=== PATIENT | female | born 1995 | race Caucasian/White ===

== ENCOUNTER 2019-11-01 22:13 | Emergency (ER) | payer MEDICAID, SELFPAY | END 2019-11-02 02:08 | disposition admitted as inpatient to this hospital (09) | LOC: ER 12-12 09:49 | PROVIDERS: Emergency Provider Emergency Medicine | DX: R45.850 Homicidal ideations (principal); F17.210 Nicotine dependence, cigarettes, uncomplicated | CPT/HCPCS: 80053; 80307; 84703; 85025; 99284; 99285 ==

== ENCOUNTER 2019-11-01 22:13 | Inpatient (IN) | payer MEDICAID, SELFPAY ==
[2019-11-01 22:16] VITALS: BP 140/80; PULSE 103; RESP 16; TEMP 36.9; O2SAT 94; BMI 37.1
--- NOTE | 2019-11-01 22:22 | PC.NURSE ---
pOLICE STATES PT LOCKED HER SELF IN THE CELLAR, AND HAD BEEN CHASING FAMILY AROUND WSCREAMING THAT SHE WANTED THEM TO . POLICE ALSO REPORTS THAT PT STATED HER FACE DID NOT FEEL LIKE HER FACE
--- NOTE | 2019-11-01 22:29 | ED_ITS ---
Entered by Aleida Briggs, acting as scribe for Ham Bess DO Documented by User: EARLINE Sauceda 11/02/19 01:10 HPI - Psych General: Chief Complaint: Psychiatric Symptoms Stated Complaint: 96 HR HOLD Time Seen by Provider: 11/01/19 22:31 Source: patient and police Mode of arrival: ambulatory Limitations: no limitations History of Present Illness: HPI Narrative: Patient is a 24-year-old female who presents to ED today after being brought by police with an affidavit for complaints of homicidal threats; according to the affidavit she made several statements that she wanted several of her family members to ; patient reports she is not suicidal; she denies hallucinations; she does states she wants her mother to and does not care if she does so; she does not have a plan to kill any of her family members History of same: Yes Associated symptoms: Reports no associated symptoms Treatments prior to arrival: placed on mental health hold [facility] ED PFSH: Statuses (acute, chronic, etc) shown below reflect problem list status as previously entered and may not be historically accurate Social History Smoking and tobacco status: current every day smoker MDM - Psych MDM Narrative: Medical decision making narrative: Dr. Bess placing admit orders Lab Data: Labs: Lab Results 11/01/19 11/01/19 11/01/19 Range/Units 21:00 23:00 23:00 WBC 14.7 H (4.0-10.0) 10^3/ uL RBC 4.14 (4.1-5.3) 10^6/u L Hgb 11.7 (11.5-15.3) g/dL Hct 37.0 (37.0-47.0) % MCV 89.4 (81-99) fL MCH 28.3 (28.0-34.0) pg MCHC 31.6 (30.0-36.0) g/dL RDW 12.0 L (12.1-15.1) % Plt Count 254 (130-400) 10^3/c mm MPV 9.3 (7.4-10.4) fL Neut % (Auto) 68.5 % Lymph % (Auto) 19.9 % [place] % (Auto) 7.7 % Eos % (Auto) 2.8 % Baso % (Auto) 0.5 % Neut # (Auto) 10.1 H (1.8-7.7) 10^3/u L Lymph # (Auto) 2.9 (0.8-4.8) 10^3/u L [place] # (Auto) 1.1 H (0.2-0.9) 10^3/u L Eos # (Auto) 0.4 (0.0-0.8) 10^3/u L Baso # (Auto) 0.1 (0.0-0.1) 10^3/u L Nucleated RBC % (a uto) 0 % Nucleated RBCs # 0.0 /100WBC Sodium 139 (136-145) mmol/L Potassium 3.6 (3.5-5.1) mmol/L Chloride 102 (98-107) mmol/L Carbon Dioxide 25 (22-29) mmol/L Anion Gap 15.6 (5-19) BUN 12 (6-20) mg/dL Creatinine 0.8 (0.5-0.9) mg/dL GFR Calculation 86.7 L (90-130) mL/min Glucose 92 (74-109) mg/dL Calcium 9.5 (8.6-10.0) mg/Dl Total Bilirubin 0.3 (0.15-1.2) mg/dL AST 17 (0-32) U/L ALT 22 (0-33) U/L Alkaline Phosphata se 117 H (35-105) IU/L Total Protein 7.0 (6.6-8.7) g/dL Albumin 4.1 (3.5-5.2) g/dL Globulin 2.9 (1.3-4.6) g/dL HCG, Qual Negative (Negative) Salicylates 0.5 L (3-10) mg/dL Acetaminophen < 5.0 L (10-30) ug/mL Ethyl Alcohol < 10 (0-10) mg/dL Discharge Plan Discharge Patient Disposition: Home, Self-Care Clinical Impression: Homicidal ideation Condition: Stable Discharge Date/Time: 11/02/19 02:08 Coding Level of Care Code ED Foundry Supervisor for Chg Fwd Documented by User: Ham Bess DO 11/02/19 05:16 HPI - Psych General: Chief Complaint: Psychiatric Symptoms Stated Complaint: 96 HR HOLD Time Seen by Provider: 11/01/19 22:31 Source: police Mode of arrival: ambulatory Limitations: no limitations History of Present Illness: HPI Narrative: 24 yo f came to the er with police for Psychiatric symptoms. Onset was Associated symptoms: Deny auditory hallucinations or visual hallucinations Review of Systems Const: Denies: fever or chills Eyes: Denies: change in vision or blurry vision ENMT: Denies: painful swallowing, swelling of lips/tongue, bleeding gums, dental pain, Change in hearing, nose bleeds, post nasal drip or facial/sinus pain Card: Denies: chest pain, palpitations, irregular heart rhythm, edema, swelling of feet/ankles, shortness of breath on exertion or shortness of breath when lying down Resp: Denies: shortness of breath, productive cough, non-productive cough or wheezing GI: Denies: abdominal pain, nausea, vomiting, rectal pain, blood in stool or black tarry stool : Denies: painful urination, urinary frequency, urinary urgency or blood in urine Musc: Denies: neck pain, back pain, redness or joint warmth Skin/Breast: Denies: rash, itching or redness Neuro: Denies: headache, dizziness, vertigo, confusion or seizure-like activity Psych: Denies: visual hallucinations or auditory hallucinations PFSH ED PFSH: Statuses (acute, chronic, etc) shown below reflect problem list status as previously entered and may not be historically accurate Social History Smoking and tobacco status: current every day smoker Female Reproductive History: Date of last menstrual period: 11/01/19 Physical Exam Const: COMMON NORMALS: alert GENERAL APPEARANCE: well developed ORIENTATION/CONSCIOUSNESS: Yes awake, Yes oriented to person, Yes oriented to place and Yes oriented to time HENMT: COMMON NORMALS: normocephalic, external ears normal, external nose normal and moist oral mucous membranes HEAD & SCALP: normocephalic; no scalp tenderness FACE & SINUS: normal facial exam NOSE: external nose normal and no nasal discharge EXTERNAL EAR: Yes external ears normal MOUTH: tongue normal TEETH & GINGIVA: no abnormal tooth and associated gingiva THROAT: posterior oropharynx normal; no peritonsillar mass Eye: COMMON NORMALS: PERRL, EOMs intact bilaterally and conjunctivae normal EYELID: eyelids normal CONJUNCTIVA: Yes conjunctivae normal PUPIL: Yes PERRL Neck/C-Spine: COMMON NORMALS: full ROM GENERAL: Yes anterior neck swelling and No tracheal deviation CERVICAL SPINE: Yes normal cervical lordosis, No cervical spine tenderness, No step off deformity, No paracervical muscle tenderness and No paracervical muscle spasm Chest: COMMONS NORMALS: inspection of chest normal CHEST: Yes symmetrical chest wall rise and No tenderness Resp: COMMON NORMALS: clear to auscultation bilaterally EFFORT & INSPECTION: No tachypneic, No respiratory distress, No retractions, No uses accessory muscles and No tracheal deviation AUSCULTATION: clear to auscultation bilaterally, no rhonchi, no wheezes and lung sounds not diminished Cardio: COMMON NORMALS: regular rate and regular rhythm RATE: regular rate RHYTHM: regular rhythm HEART SOUNDS: no murmurs PERIPHERAL PULSES: radial pulses present GI: INSPECTION: No abdominal distension AUSCULTATION: No hyperactive bowel sounds and No hypoactive bowel sounds PALPATION: No tender, No guarding and No rigid PERCUSSION: no dullness to percussion and no tympanic to percussion : COMMON NORMALS: Yes no CVA tenderness BLADDER/KIDNEY EXAM: Yes no CVA tenderness Back/Pelvis: COMMON NORMALS: no CVA tenderness PELVIS: Yes no pain with anterior-posterior compression and Yes no pain with lateral compression Neuro: SENSORIUM/ORIENTATION: Yes alert, Yes oriented to person, Yes oriented to place and Yes oriented to time Psych: COMMON NORMALS: mental status grossly normal and speech normal SPEECH: Yes normal speech Skin: COMMON NORMALS: no rashes or lesions noted GENERAL SKIN EXAM: no rashes or lesions noted MDM - Psych Lab Data: Labs: Lab Results 11/01/19 11/01/19 11/01/19 Range/Units 21:00 23:00 23:00 WBC 14.7 H (4.0-10.0) 10^3/ uL RBC 4.14 (4.1-5.3) 10^6/u L Hgb 11.7 (11.5-15.3) g/dL Hct 37.0 (37.0-47.0) % MCV 89.4 (81-99) fL MCH 28.3 (28.0-34.0) pg MCHC 31.6 (30.0-36.0) g/dL RDW 12.0 L (12.1-15.1) % Plt Count 254 (130-400) 10^3/c mm MPV 9.3 (7.4-10.4) fL Neut % (Auto) 68.5 % Lymph % (Auto) 19.9 % [place] % (Auto) 7.7 % Eos % (Auto) 2.8 % Baso % (Auto) 0.5 % Neut # (Auto) 10.1 H (1.8-7.7) 10^3/u L Lymph # (Auto) 2.9 (0.8-4.8) 10^3/u L [place] # (Auto) 1.1 H (0.2-0.9) 10^3/u L Eos # (Auto) 0.4 (0.0-0.8) 10^3/u L Baso # (Auto) 0.1 (0.0-0.1) 10^3/u L Nucleated RBC % (a uto) 0 % Nucleated RBCs # 0.0 /100WBC Sodium 139 (136-145) mmol/L Potassium 3.6 (3.5-5.1) mmol/L Chloride 102 (98-107) mmol/L Carbon Dioxide 25 (22-29) mmol/L Anion Gap 15.6 (5-19) BUN 12 (6-20) mg/dL Creatinine 0.8 (0.5-0.9) mg/dL GFR Calculation 86.7 L (90-130) mL/min Glucose 92 (74-109) mg/dL Calcium 9.5 (8.6-10.0) mg/Dl Total Bilirubin 0.3 (0.15-1.2) mg/dL AST 17 (0-32) U/L ALT 22 (0-33) U/L Alkaline Phosphata se 117 H (35-105) IU/L Total Protein 7.0 (6.6-8.7) g/dL Albumin 4.1 (3.5-5.2) g/dL Globulin 2.9 (1.3-4.6) g/dL HCG, Qual Negative (Negative) Salicylates 0.5 L (3-10) mg/dL Acetaminophen < 5.0 L (10-30) ug/mL Ethyl Alcohol < 10 (0-10) mg/dL Discharge Plan Discharge Patient Disposition: Home, Self-Care Clinical Impression: Homicidal ideation Condition: Stable Discharge Date/Time: 11/02/19 02:08 Coding Level of Care Code ED Foundry Supervisor for Chg Fwd The documentation recorded by the Chester garza Stephanie Lyn, accurately reflects the service I personally performed and the decisions made by , Ham Bess, Nov 01, 2019 22:13
[2019-11-01 23:12] LABS: Basophils # 0.1 10^3/uL (0.0-0.1); Basophils % 0.5 %; Eosinophils # 0.4 10^3/uL (0.0-0.8); Eosinophils % 2.8 %; Hemoglobin 11.7 g/dL (11.5-15.3); Lymphocytes # 2.9 10^3/uL (0.8-4.8); Lymphocytes % 19.9 %; Mean Corpuscular HGB Conc 31.6 g/dL (30.0-36.0); Mean Corpuscular Hemoglobin 28.3 pg (28.0-34.0); Mean Corpuscular Volume 89.4 fL (81-99); Mean Platelet Volume 9.3 fL (7.4-10.4); Monocytes # 1.1 10^3/uL (0.2-0.9); Monocytes % 7.7 %; Neutrophils # 10.1 10^3/uL (1.8-7.7); Neutrophils % 68.5 %; Nucleated Red Blood Cells % 0 %; Platelet Count 254 10^3/cmm (130-400); Red Blood Count 4.14 10^6/uL (4.1-5.3); White Blood Count 14.7 10^3/uL (4.0-10.0)
[2019-11-01 23:29] LABS: Alanine Aminotransferase 22 U/L (0-33); Albumin Level 4.1 g/dL (3.5-5.2); Alkaline Phosphatase 117 IU/L (35-105); Anion Gap 15.6 (5-19); Aspartate Amino Transferase 17 U/L (0-32); Blood Urea Nitrogen 12 mg/dL (6-20); Calcium 9.5 mg/Dl (8.6-10.0); Carbon Dioxide 25 mmol/L (22-29); Chloride 102 mmol/L (98-107); Globulin 2.9 g/dL (1.3-4.6); Glomerular Filtration Rate 86.7 mL/min (90-130); Glucose 92 mg/dL (74-109); Potassium 3.6 mmol/L (3.5-5.1); Salicylate 0.5 mg/dL (3-10); Sodium 139 mmol/L (136-145); Total Bilirubin 0.3 mg/dL (0.15-1.2)
[2019-11-01 23:32] LABS: Acetaminophen < 5.0 ug/mL (10-30); Alcohol Level < 10 mg/dL (0-10)
[2019-11-02 00:53] LABS: HCG, Serum Qual Negative (Negative)
[2019-11-02 02:08] VITALS: BP 99/51; PULSE 94; RESP 16; O2SAT 96
[2019-11-02 02:16] VITALS: BP 121/61; PULSE 100; RESP 21; TEMP 36.9; O2SAT 97
[2019-11-02 06:00] VITALS: BP 101/62; PULSE 84; RESP 20; TEMP 36.8; O2SAT 97
[2019-11-02 13:48] VITALS: BP 128/87; PULSE 99; RESP 20; TEMP 36.8; O2SAT 98
--- NOTE | 2019-11-02 16:34 | P.HP_ITS ---
Providers/Chief Complaint Admitting Physician: Ashish Hickman MD Chief Complaint: 96 HR HOLD HPI NPU History of Present Illness Carla Young is a 24 year old female who presented to the unit via the ED reporting that she had gotten a conflict with her mother and to the outcome of that conflict was that she got kicked out and she had nowhere else to go and her mother reported that she (the patient) was feeling suicidal. She reports that she never felt that way and it was just a product of this conflict. She spent the rest of the session in date and trying to get this flex o writer operator to get on a phone with anyone who might agreed to let her come there so she can be discharged today. She was classically Carla and that she was having tantrums jumping up and down having screaming fits when she did not get her way but otherwise she was calm. We reviewed her last evaluation with this flex o writer operator and determined that outside of being kicked out by her mom there have been no changes in her psychosocial circumstances. We discussed the plan to work with the treatment team on possible options for after discharge and to take a look at her medication regimen with a plan to make changes as indicated. However sig nificant concerns exist for this being behavioral and a indication that home is becoming a less viable option for Carla.who presented to the unit via the ED reporting that she had gotten a conflict with her mother and to the outcome of that conflict was that she got kicked out and she had nowhere else to go and her mother reported that she (the patient) was feeling suicidal. She reports that she never felt that way and it was just a product of this conflict. She spent the rest of the session in date and trying to get this flex o writer operator to get on a phone with anyone who might agreed to let her come there so she can be discharged today. She was classically Carla and that she was having tantrums jumping up and down having screaming fits when she did not get her way but otherwise she was calm. We reviewed her last evaluation with this flex o writer operator and determined that outside of being kicked out by her mom there have been no changes in her psychosocial circumstances. We discussed the plan to work with the treatment team on possible options for after discharge and to take a look at her medication regimen with a plan to make changes as indicated. However significant concerns exist for this being behavioral and a indication that home is becoming a less viable option for Carla. Per last eval with this flex o writer operator: History of Present Illness Date of Service: Sep 13, 2019 Chief Complaint: I don't know why I'm here. Can I go home? HPI: Carla presented to the inpatient unit reporting that she did not understand why she has been hospitalized or why she is on a 96-hour hold. She appear to be a poor historian as she can give no ideas of why concerns were raised. She went to the [facility] where she is known and she reports that the problem had something to do with her not wanting to see a therapist. She denies any changes or issues. She endorses compliance with her medication and that she is doing well and has been doing well. History of her recent hospitalizations which are frequent have been included in this document. She denies any change in her history since her last hospitalizations. She denies any problems or any need for any medication interventions and was mostly focused on when would she be discharged. Per ED eval: HISTORY OF PRESENT ILLNESS Chief Complaint: BEHAVIOR CHANGE. This started today. (23 yo female presents to ED on a 96 hour hold. The patient states she was woke to be brought to the ED and she doesn't know why. She said her grandma was mad because the patient walked out of her [facility] appointment and so she had the patient placed on a 96 hour hold since the patient won't go to her appointments nor will she take her medications. When the patient was asked about having hallucinations, depression, SI or HI, the patient kept saying no and would not look at the physician but would only look to the side and repeatedly answer no . The patient said she last used methamphetamine today. After asking her many questions regarding her mental state, she said everything is no and everything is yes. ). The patient is non-compliant with medication. Recent methamphetamines use. Last used drugs today. Has not been sleeping. Has exhibited unusual behavior. Has been paranoid (per family members in the affidavit). She has had hallucinations (per family members though she denies it). The symptoms are described as severe. No injury is present. Similar symptoms previously. Recent medical care: The patient was seen recently by a health care provider. REVIEW OF SYSTEMS All other systems reviewed and are negative. PAST HISTORY See nurses notes. Lung disease. Prior suicide attempt. ( PCP - none). Myocardial infarction. Asthma. Anxiety. Bipolar disorder. Depression. Schizophrenia and psychosis (Intermittent Explosive Disorder, Personality Disorder, Adjustment DIsorder). Previous suicide attempts. Alcoholism. Alcoholism. Substance abuse. ( Lifestyle/Substance Problems). Surgeries: Appendectomy. SOCIAL HISTORY Current every day light tobacco smoker (cigarette)- less than 1/2 a pack per day. Occasional alcohol use; consumes beer and liquor. History of heavy drug use: methamphetamines. Recently used drugs today. ADDITIONAL NOTES The nursing notes have been reviewed. PHYSICAL EXAM Vital Signs: 09/12/2019 22:04 BP: 168/82. HR: 105. RR: 18. O2 saturation: 98%. Temp: 98.1 F. Appearance: Alert. No acute distress. Appearance is normal. Neck: Neck supple. CVS: Tachycardia. Respiratory: Breath sounds normal. Abdomen: Nontender. Skin: Normal skin color. Extremities: Extremities exhibit normal ROM. Psych / Neuro: Oriented X 3. Mood and affect normal. Speech normal. Cognition normal. Thought process and content normal. Insight and judgement not normal. She does not appear to understand hers illness or feel treatment is necessary. Per last eval: History of Present Illness Date of Service: Jun 04, 2019 Chief Complaint: Hat Finishing Materials Preparer stated that she wanted to harm herself. Carla is denying the allegation. HPI: Carla is a 23 year old white female who was referred for suicidal thoughts. She denies suicidal thoughts. The last time Carla had suicidal thoughts was six months ago. She denies a history of suicide attempts. Moods are happy and a little anxious. The patient is able to have fun. Sleep is good. Appetite is good. Energy level is low. Concentration is good. She denies crying spells and g uilty feelings. Motivation is good. She denies homicidal and suicidal thoughts. She denies excessive worry, panic attacks, compulsions and obsessions. The patient denies parisa and irritability. Carla denies hallucinations, paranoia, ideas of references, thought broadcasting, thought insertion and thought withdrawal. Meds NPU Allergies Allergy/AdvReac Type Severity Reaction Status Date / Time haloperidol [From Haldol] Allergy Intermediate ADR-Shakine Verified 11/02/19 03:17 ss PFSH NPU PFSH: Statuses (acute, chronic, etc) shown below reflect problem list status as previously entered and may not be historically accurate Social History Smoking and tobacco status: current every day smoker Mental Status Exam MSE Comments: This is an obese white female with adequate dress grooming and eye contact. No abnormal movements. Cooperative with exam and occasional mild distress. Speech was increased rate and volume. Mood described as fine affect congruent but occasionally labile. Thought process organized. Thought content: Patient denied any suicidal or homicidal ideations, there were no delusions reported or noted, she denied any auditory or visual hallucinations. Attention and concentration were intact and memory appeared reliable but none were formally tested. She is alert and oriented x3. Insight and judgment are limited. Vitals/I&O/Wt Last Vital Signs Temp 98.2 F 11/02/19 13:48 Pulse 99 11/02/19 13:48 Resp 20 H 11/02/19 13:48 BP 128/87 11/02/19 13:48 Pulse Ox 98 11/02/19 13:48 Weight last 48 hrs Weight 117.934 kg Weight 117.934 kg Weight 117.934 kg Weight 104.326 kg A&P Assessment and plan (1) Schizophrenia: This is a 24-year-old white female with a long history of psychiatric hospitalizations often brought about by psychosocial stressors and conflicts who presents again today after a conflict with her mother wherein she was kicked out and had nowhere to go and was noted by mother to be suicidal though she denies and she is here desiring discharge as soon as possible. 1. Continue current medications. 2. Consider medication changes as indicated 3. Encouraged individual, group and milieu therapy. 4. Continue every 15 minute checks for safety. 5. Work with social work to determine housing options Status: Acute Code(s): F20.9 - Schizophrenia, unspecified (2) Methamphetamine dependence, continuous: Status: Acute Code(s): F15.20 - Other stimulant dependence, uncomplicated Involuntary Hold Information 96 Hour Hold: 96 Hour Involuntary Admission: Yes 96 Hour Hold Ending Date: 11/07/19 96 Hour Hold Ending Time: 00:01 Attestations NPU Medical Necessity Statement*: Inpatient hospitalization is medically necessary and the clinically appropriate intervention at this time. She will be in the hospital for over 2 midnights. We will initiate medication and titrate and monitor for effect. Likely length of stay 2 to 4 days. Coding Level of Care Code Acute Waterworks Supervisor for g Fwd Diagnoses Schizophrenia F20.9 Methamphetamine dependence, continuous F15.20
[2019-11-02 20:40] VITALS: BP 101/63; PULSE 82; RESP 19; TEMP 36.9; O2SAT 96
[2019-11-03 05:58] VITALS: BP 111/84; PULSE 94; RESP 20; TEMP 36.8; O2SAT 95
[2019-11-03] MEDS: OLANZapine ODT 5 MG TABLET PO (10:18)
--- NOTE | 2019-11-03 10:18 | PC.NURSE ---
PRN ZYPREXA ZYDIS ZYPREXA ZYDIS 5MG PO GIVEN FOR AGITATION. PATIENT IN ROOM YELLING AND SCREAMING THAT SHE WANTS TO GO HOME. STAFF TRIED VERBAL DEESCALATION, PATIENT WILLINGLY TOOK MEDICATION TO HELP CALM HER DOWN. WILL CONTINUE TO MONITOR FOR MEDICATION EFFECTIVENESS.
--- NOTE | 2019-11-03 11:12 | P.PN_ITS ---
Subjective NPU Subjective: Interval history: Carla presented today reporting that she is struggling with not being able to go home. Staff tried to reason with her and help her manage her emotions which was unsuccessful. She ultimately got an injection. We discussed with her the fact that this behavior is what is getting her in trouble at home and she could not seem to really connect with that reality. We discussed the possibility of making some medication changes but we need to talk to her guardian. Mental Status Exam MSE Comments: This is an obese white female with adequate dress grooming and eye contact. No abnormal movements. semi-cooperative with exam in occasional mild to moderate distress. Speech was increased rate and volume. Mood described as ok, affect upset and labile. Thought process organized. Thought content: Patient denied any suicidal or homicidal ideations, there were no delusions reported or noted, she denied any auditory or visual hallucinations. Attention and concentration were limited and memory appeared unreliable but none were formally tested. She is alert and oriented x3. Insight and judgment are impaired Vitals/I&O/Wt Last Vital Signs Temp 98.3 F 11/04/19 06:00 Pulse 81 11/04/19 06:00 Resp 16 11/04/19 06:00 BP 106/64 11/04/19 06:00 Pulse Ox 95 11/04/19 06:00 A&P Additional A&P Information Additional A&P Information: This is a 24-year-old white female with a long history of psychiatric hospitalizations often brought about by psychosocial stressors and conflicts who presents again today after a conflict with her mother wherein she was kicked out and had nowhere to go and was noted by mother to be suicidal though she denies and she is here desiring discharge as soon as possible. 1. Continue current medications. 2. Consider medication changes as indicated after speaking to guardian 3. Encouraged individual, group and milieu therapy. 4. Continue every 15 minute checks for safety. 5. Work with social work to determine housing options Involuntary Hold Information 96 Hour Hold: 96 Hour Involuntary Admission: Yes 96 Hour Hold Ending Date: 11/07/19 96 Hour Hold Ending Time: 00:01 Attestations NPU Medical Necessity Statement*: Inpatient hospitalization is medically necessary and the clinically appropriate intervention at this time. We will initiate medication and titrate and monitor for effect. Likely length of stay 3-5 days. Coding Level of Care Code Acute Corporate Sales Manager for Walt Cuellar
--- NOTE | 2019-11-03 11:20 | PC.NURSE ---
VITALIY HUGHES FOLLOW UP MEDICATION SOMEWHAT EFFECTIVE. PATIENT IS STILL HAVING SOME ANGER OUTBURST.
[2019-11-03 13:27] VITALS: BP 108/74; PULSE 97; RESP 18; TEMP 36.5; O2SAT 98
[2019-11-03] MEDS: ziprasidone 20 mg/mL SDV IM (15:42)
--- NOTE | 2019-11-03 15:42 | PC.NURSE ---
PRN GEODON ONE TIME ORDER PRN GEODON 20MG IM PER DR. DELA CRUZ ORDER TO LEFT DORSOGLUTEAL FOR AGITATION/HALLUCINATIONS. PATIENT YELLING AND SCREAMING, PATIENT THOUGHT THAT THE SHIP'S PILOT WERE IN HER ROOM AND THAT THEY HAD A LIE DETECTOR ON HER. STAFF ESCORTED PATIENT BACK TO SECLUSION ROOM WHERE SOCIAL MEDIA DESIGNER SAT WITH HER TIL WE BROUGHT GEODON INJECTION. PATIENT TOOK INJECTION WILLINGLY AND LAID DOWN IN BED TO REST. WILL CONTINUE TO MONITOR FOR MEDICATION EFFECTIVENESS.
--- NOTE | 2019-11-03 16:50 | PC.NURSE ---
PRN LILIA ONE TIME ORDER FOLLOW UP MEDICATION EFFECTIVE. PATIENT IN LYING IN BED RESTING. RESPIRATIONS EVEN AND UNLABORED.
--- NOTE | 2019-11-03 17:38 | PC.NURSE ---
PRN ZYPREXA ZYDIS ZYPREXA ZYDIS 5MG PO GIVEN FOR AGITATION. PATIENT IN ROOM YELLING AND SCREAMING THAT SHE WANTS TO GO HOME. WILL CONTINUE TO MONITOR FOR MEDICATION EFFECTIVENESS.
[2019-11-03 20:52] VITALS: BP 115/73; PULSE 83; RESP 18; O2SAT 94
--- NOTE | 2019-11-03 20:53 | PC.NURSE ---
PATIENT VITAL SIGNS PATIENT REFUSED TEMPERATURE BUT ALLOWED STAFF TO DO ALL VITAL SIGNS.
[2019-11-04 06:00] VITALS: BP 106/64; PULSE 81; RESP 16; TEMP 36.8; O2SAT 95
--- NOTE | 2019-11-04 07:19 | P.PN_ITS ---
Subjective NPU Subjective: Interval history: Carla presents today being a little less upset as there are some possibility developing of where she can go outside of the hospital. She is very resistant to discussing the impact that drugs, specifically methamphetamine have had on her life. She continues to request to be discharged directly to a friend's house but we continue to reiterate that she has a guardian in the wee are discussing the guardian's wishes in relation to her and what has been successful in her history. She is not requiring additional medication today and has seemingly come to foot piece assembler with the fact that she will be in the hospital until we find an appropriate alternative for her. She reports she is eating and sleeping well. Mental Status Exam MSE Comments: This is an obese white female with adequate dress grooming and eye contact. No abnormal movements. semi-cooperative with exam in no acute distress. Speech was increased rate and volume. Mood described as better, a ffect less labile. Thought process organized. Thought content: Patient denied any suicidal or homicidal ideations, there were no delusions reported or noted, she denied any auditory or visual hallucinations. Attention and concentration were limited and memory appeared unreliable but none were formally tested. She is alert and oriented x3. Insight and judgment are impaired. Vitals/I&O/Wt Last Vital Signs Temp 98.3 F 11/04/19 06:00 Pulse 81 11/04/19 06:00 Resp 16 11/04/19 06:00 BP 106/64 11/04/19 06:00 Pulse Ox 95 11/04/19 06:00 A&P Additional A&P Information Additional A&P Information: This is a 24-year-old white female with a long history of psychiatric hospitalizations often brought about by psychosocial stressors and conflicts who presents again today after a conflict with her mother wherein she was kicked out and had nowhere to go and was noted by mother to be suicidal though she denies and she is here desiring discharge as soon as possible. 1. Continue current medications. 2. Consider medication changes as indicated after speaking to guardian 3. Encouraged individual, group and milieu therapy. 4. Continue every 15 minute checks for safety. 5. Will work with guardian and social work to determine housing options. Involuntary Hold Information 96 Hour Hold: 96 Hour Involuntary Admission: Yes 96 Hour Hold Ending Date: 11/07/19 96 Hour Hold Ending Time: 00:01 Attestations NPU Medical Necessity Statement*: Inpatient hospitalization is medically necessary and the clinically appropriate intervention at this time. We will initiate medication and titrate and monitor for effect. Likely length of stay 3-5 days. Coding Level of Care Code Acute Steamfitter for Walt Cuellar
[2019-11-04 13:49] VITALS: BP 124/86; PULSE 106; RESP 20; TEMP 36.8; O2SAT 96
[2019-11-04] MEDS: nicotine 21 mg Patch 1 PATCH TRANSDERMA (13:57)
[2019-11-04 19:41] VITALS: BP 99/61; PULSE 93; RESP 20; TEMP 36.9; O2SAT 93
[2019-11-05 06:00] VITALS: BP 132/80; PULSE 95; RESP 19; TEMP 36.8; O2SAT 95
--- NOTE | 2019-11-05 10:55 | P.PN_ITS ---
Subjective NPU Subjective: Interval history: Carla presents today continuing to focus on leaving almost by any means necessary. She requested to go to her friend's house or just be let loose. Reassured her that she had been accepted by a rehab and we are just trying to work a little just 6. She continues however to be inpatient. We discussed the risks benefits and alternatives of starting Geodon but also restarting her Abilify injection when she understood and agreed to proceed as is documented in this note. Mental Status Exam MSE Comments: This is an obese white female with adequate dress grooming and eye contact. No abnormal movements. semi-cooperative with exam in no acute distress. Speech was increased rate and volume. Mood described as i'm fine I don't need to be here, affect less labile. Thought process organized. Thought content: Patient denied any suicidal or homicidal ideations, there were no delusions reported or noted, she denied any auditory or visual hallucinations. Attention and concentration were limited and memory appeared unreliable but none were formally tested. She is alert and oriented x3. Insight and judgment are impaired. Vitals/I&O/Wt Last Vital Signs Temp 98.2 F 11/05/19 06:00 Pulse 95 11/05/19 06:00 Resp 19 H 11/05/19 06:00 BP 132/80 11/05/19 06:00 Pulse Ox 95 11/05/19 06:00 A&P Additional A&P Information Additional A&P Information: This is a 24-year-old white female with a long history of psychiatric hospitalizations often brought about by psychosocial stressors and conflicts who presents again today after a conflict with her mother wherein she was kicked out and had nowhere to go and was noted by mother to be suicidal though she denies and she is here desiring discharge as soon as possible. 1. Continue current medications. Restart Abilify Maintena 400 mg IM and start geodon 20mg bid 2. Consider medication changes as indicated after speaking to guardian 3. Encouraged individual, group and milieu therapy. 4. Continue every 15 minute checks for safety. 5. Will discharge to rehab tomorrow Involuntary Hold Information 96 Hour Hold: 96 Hour Involuntary Admission: Yes 96 Hour Hold Ending Date: 11/07/19 96 Hour Hold Ending Time: 00:01 Attestations NPU Medical Necessity Statement*: Inpatient hospitalization is medically necessary and the clinically appropriate intervention at this time. We will initiate medication and titrate and monitor for effect. Discharge to rehab tomorrow Coding Level of Care Code Acute Doctor'S Assistant for Walt Cuellar
[2019-11-05] MEDS: hyDROXYzine 25 mg Capsule 50 MG PO (11:20)
--- NOTE | 2019-11-05 11:21 | PC.NURSE ---
PT NOTE: PT BEATING AND PUSHING ON DOOR, REPORTS SHE WANTS OUT OF HERE AND WANTS A CIGARETTE. OFFERED AND ENCOURAGED PATIENT TO TAKE NICOTINE PATCH BUT PT REFUSED. PRN VISTARIL 50 MG GIVEN FOR ANXIETY.
[2019-11-05] MEDS: nicotine 21 mg Patch 1 PATCH TRANSDERMA (13:08)
[2019-11-05 14:00] VITALS: BP 130/87; PULSE 120; RESP 18; TEMP 36.4; O2SAT 96
[2019-11-05] MEDS: ziprasidone hcl 20 mg Capsule PO (16:48)
[2019-11-05] MEDS: ARIPiprazole Maintena 400 MG IM (18:19)
--- NOTE | 2019-11-05 18:25 | PC.NURSE ---
PT NOTE: 1800 GEODON 20MG NOT GIVEN PER DR. DELA CRUZ.
[2019-11-05 19:53] VITALS: BP 107/62; PULSE 88; RESP 17; TEMP 36.9; O2SAT 97
[2019-11-06 06:00] VITALS: BP 127/82; PULSE 100; RESP 20; TEMP 37; O2SAT 99
--- NOTE | 2019-11-06 11:04 | PM.NDC ---
Diagnoses at Discharge Discharge Diagnosis (1) Schizophrenia: Status: Acute (2) Methamphetamine dependence, continuous: Status: Acute Reason for Visit Reason for Visit: Reason For Visit: 96 HR HOLD Brief History: HPI NPU History of Present Illness Carla Young is a 24 year old female who presented to the unit via the ED reporting that she had gotten a conflict with her mother and to the outcome of that conflict was that she got kicked out and she had nowhere else to go and her mother reported that she (the patient) was feeling suicidal. She reports that she never felt that way and it was just a product of this conflict. She spent the rest of the session in date and trying to get this advertising writer to get on a phone with anyone who might agreed to let her come there so she can be discharged today. She was classically Carla and that she was having tantrums jumping up and down having screaming fits when she did not get her way but otherwise she was calm. We reviewed her last evaluation with this advertising writer and determined that outside of being kicked out by her mom there have been no changes in her psychosocial circumstances. We discussed the plan to work with the treatment team on possible options for after discharge and to take a look at her medication regimen with a plan to make changes as indicated. However significant concerns exist for this being behavioral and a indication that home is becoming a less viable option for Carla.who presented to the unit via the ED reporting that she had gotten a conflict with her mother and to the outcome of that conflict was that she got kicked out and she had nowhere else to go and her mother reported that she (the patient) was feeling suicidal. She reports that she never felt that way and it was just a product of this conflict. She spent the rest of the session in date and trying to get this advertising writer to get on a phone with anyone who might agreed to let her come there so she can be discharged today. She was classically Carla and that she was having tantrums jumping up and down having screaming fits when she did not get her way but otherwise she was calm. We reviewed her last evaluation with this advertising writer and determined that outside of being kicked out by her mom there have been no changes in her psychosocial circumstances. We discussed the plan to work with the treatment team on possible options for after discharge and to take a look at her medication regimen with a plan to make changes as indicated. However significant concerns exist for this being behavioral and a indication that home is becoming a less viable option for Carla. Per last eval with this advertising writer: History of Present Illness Date of Service: Sep 13, 2019 Chief Complaint: I don't know why I'm here. Can I go home? HPI: Carla presented to the inpatient unit reporting that she did not understand why she has been hospitalized or why she is on a 96-hour hold. She appear to be a poor historian as she can give no ideas of why concerns were raised. She went to the [facility] where she is known and she reports that the problem had something to do with her not wanting to see a therapist. She denies any changes or issues. She endorses compliance with her medication and that she is doing well and has been doing well. History of her recent hospitalizations which are frequent have been included in this document. She denies any change in her history since her last hospitalizations. She denies any problems or any need for any medication interventions and was mostly focused on when would she be discharged. Per ED eval: HISTORY OF PRESENT ILLNESS Chief Complaint: BEHAVIOR CHANGE. This started today. (23 yo female presents to ED on a 96 hour hold. The patient states she was woke to be brought to the ED and she doesn't know why. She said her grandma was mad because the patient walked out of her [facility] appointment and so she had the patient placed on a 96 hour hold since the patient won't go to her appointments nor will she take her medications. When the patient was asked about having hallucinations, depression, SI or HI, the patient kept saying no and would not look at the physician but would only look to the side and repeatedly answer no . The patient said she last used methamphetamine today. After asking her many questions regarding her mental state, she said everything is no and everything is yes. ). The patient is non-compliant with medication. Recent methamphetamines use. Last used drugs today. Has not been sleeping. Has exhibited unusual behavior. Has been paranoid (per family members in the affidavit). She has had hallucinations (per family members though she denies it). The symptoms are described as severe. No injury is present. Similar symptoms previously. Recent medical care: The patient was seen recently by a health care provider. REVIEW OF SYSTEMS All other systems reviewed and are negative. PAST HISTORY See nurses notes. Lung disease. Prior suicide attempt. ( PCP - none). Myocardial infarction. Asthma. Anxiety. Bipolar disorder. Depression. Schizophrenia and psychosis (Intermittent Explosive Disorder, Personality Disorder, Adjustment DIsorder). Previous suicide attempts. Alcoholism. Alcoholism. Substance abuse. ( Lifestyle/Substance Problems). Surgeries: Appendectomy. SOCIAL HISTORY Current every day light tobacco smoker (cigarette)- less than 1/2 a pack per day. Occasional alcohol use; consumes beer and liquor. History of heavy drug use: methamphetamines. Recently used drugs today. ADDITIONAL NOTES The nursing notes have been reviewed. PHYSICAL EXAM Vital Signs: 09/12/2019 22:04 BP: 168/82. HR: 105. RR: 18. O2 saturation: 98%. Temp: 98.1 F. Appearance: Alert. No acute distress. Appearance is normal. Neck: Neck supple. CVS: Tachycardia. Respiratory: Breath sounds normal. Abdomen: Nontender. Skin: Normal skin color. Extremities: Extremities exhibit normal ROM. Psych / Neuro: Oriented X 3. Mood and affect normal. Speech normal. Cognition normal. Thought process and content normal. Insight and judgement not normal. She does not appear to understand hers illness or feel treatment is necessary. Per last eval: History of Present Illness Date of Service: Jun 04, 2019 Chief Complaint: Vp Customer Development stated that she wanted to harm herself. Carla is denying the allegation. HPI: Carla is a 23 year old white female who was referred for suicidal thoughts. She denies suicidal thoughts. The last time Carla had suicidal thoughts was six months ago. She denies a history of suicide attempts. Moods are happy and a little anxious. The patient is able to have fun. Sleep is good. Appetite is good. Energy level is low. Concentration is good. She denies crying spells and guilty feelings. Motivation is good. She denies homicidal and suicidal thoughts. She denies excessive worry, panic attacks, compulsions and obsessions. The patient denies parisa and irritability. Carla denies hallucinations, paranoia, ideas of references, thought broadcasting, thought insertion and thought withdrawal. Hospital Course Hospital Course Carla presented to the emergency room with reports and concerns expressed related to aggression and lethality. Her mother had requested a 96-hour hold however she did have a guardian and the guardian did agree with her hospitalization. She was admitted to the neuropsychiatric unit for definitive treatment. She was started on Geodon and tolerated the medication well. Additionally we made sure she got her Abilify Maintena injection 400 mg q. 30 days which had been previously missed. She spent much of the time trying to find someone that would say she could come live there and then trying to use that affirmation as a reason she should be discharged.There are multiple Facebook post depicting her paddling/panhandling for money. She has multiple hospitalizations of with UDS positive findings. She did require a few instances of as needed medication for agitation. During the hospitalization she had routine laboratory studies which were within normal limits except for a few outliers. Additionally she had a general medical evaluation which was within normal limits and revealed no new acute processes. Discharge Summary At the time of discharge she denied all lethality, her mood had improved, her anxiety with reportedly under control and she agreed to go to the inpatient rehab which have been arranged for her by the social work team. She endorsed a plan to follow-up with her outpatient services upon completion of the inpatient rehab. She was evaluated for imminent risk to self or others and deemed to be absent any credible risk for self directed or outwardly directed aggression. She had received the maximum benefit from an inpatient hospitalization, so she was discharged Involuntary Hold Information 96 Hour Hold: 96 Hour Involuntary Admission: Yes 96 Hour Hold Ending Date: 11/07/19 96 Hour Hold Ending Time: 00:01 Mental Status Exam MSE Comments: This is an obese white female with adequate dress grooming and eye contact. No abnormal movements. Cooperative with exam in no acute distress. Speech was mostly normal rate and volume. Mood described as good, affect less labile. Thought process organized. Thought content: Patient denied any suicidal or homicidal ideations, there were no delusions reported or noted, she denied any auditory or visual hallucinations. Attention and concentration were limited and memory appeared unreliable but none were formally tested. She is alert and oriented x3. Insight and judgment are limited, but improving. Discharge Data Vitals: Last Vital Signs Temp 98.6 F 11/06/19 06:00 Pulse 100 11/06/19 06:00 Resp 20 H 11/06/19 06:00 BP 127/82 11/06/19 06:00 Pulse Ox 99 11/06/19 06:00 Discharge Plan Discharge Patient Disposition: Xfer Other Condition: Stable Prescriptions: New ziprasidone HCl 20 mg Capsule 20 mg PO BID 30 Days Qty: 60 RF: 1 Discharge Orders: Discharge Order (Routine); Ordered 11/06/19 Ordered By: Ashish Hickman Referrals: [facility] [Provider Group] Activity Restrictions/Additional Instructions: You are to complete your treatment at rehab. You are to coordinate discharge planning from rehab with your legal guardian, Kalin Biswas and staff at rehab. Office number for guardian is [phone]. Be sure to get with staff at the rehab as soon as possible in regards to the need to coordinate with him. Depending on the arrangements made at the completion of rehab you will need to follow-up with a mental health provider. In [place], you can follow at [facility]... you may go there during the walk-in hours. Walk-in hours 7:30-2:30 Sunday through Sunday at [facility] ([facility]) [facility] [address] [place] [address] You will need your next Abilify Maintena Injection on December 05, 2019. You may get this at either Urgent Care or Behavioral Health Care. The medication will need to be picked up at your pharmacy. Discharge Date/Time: 11/06/19 09:28 Discharge Attestations NPU Time Spent in Discharge Care*: less than 30 min Specific Discharge Activities: Specific discharge activities: educating patient, discussing with case loader operator/social workers/dc planners, documenting/other paperwork and evaluating patient/reviewing data Coding Level of Care Code Acute Talent Management Manager for g Fwd Diagnoses Schizophrenia F20.9 Methamphetamine dependence, continuous F15.20
--- NOTE | 2019-11-06 15:27 | PC.SOCIAL ---
Guardian reported back that when patient arrived at [facility] she refused to stay and get on the transport to [facility] and ran away from the facility.
== END 2019-11-06 09:28 | disposition other institution (70) | DRG 885 ==
LOC: ER 22:43 → NP 11-02 00:27
PROVIDERS: Physician Assistant; Admitting Provider Psychiatry & Neurology Psychiatry; Emergency Provider Emergency Medicine; Visit Provider Psychiatry & Neurology Psychiatry
DX: F23 Brief psychotic disorder (principal); F15.20 Other stimulant dependence, uncomplicated; R45.851 Suicidal ideations; F17.210 Nicotine dependence, cigarettes, uncomplicated; Z91.5 Personal history of self-harm
CPT/HCPCS: 12345; 80053; 80307; 84703; 85025; 96372; 99284; J0401; J3486

== ENCOUNTER 2019-12-29 23:32 | Emergency (ER) | payer MEDICAID, SELFPAY ==
[2019-12-29 23:35] VITALS: BP 142/95; PULSE 102; RESP 16; TEMP 36.9; O2SAT 98; BMI 40.3
--- NOTE | 2019-12-29 23:40 | ED_ITS ---
Entered by Velvet Glasgow, acting as scribe for Latesha Celaya MD HPI - Psych General: Chief Complaint: General Medical Stated Complaint: BUGS Time Seen by Provider: 12/29/19 23:39 Source: patient and police History of Present Illness: HPI Narrative: 24 y/o female presents to the ED with complaint of skin issue. Pt states she has been using meth and is a known schizophrenic. She has a warrant out for her arrest and was brought here because she thinks she has scabies in her vagina. Pt states she has a burning sensation and jourdan she investigated it with her hand, the rash/burning/bugs spread to her upper extremity. Pt refused the physical exam. MD complaint: other (meth/schizophrenic/bugs in vagina) Onset (ago): hour(s) Duration: constant Associated psychiatric symptoms: racing thoughts Associated symptoms: Deny depression Review of Systems Const: Denies: fever, chills, body aches or change in appetite Eyes: Denies: blurry vision or eye discomfort ENMT: Denies: throat pain or dental pain Card: Denies: chest pain Resp: Denies: shortness of breath GI: Denies: abdominal pain, nausea, vomiting or diarrhea : Reports: genital itching Musc: Denies: neck pain or back pain Skin/Breast: Reports: rash, itching, redness and dry skin Neuro: Denies: headache Psych: Denies: depression Baljeet/Lymph: Denies: easy bruising All/Imm: Denies: hives PFS ED PFSH: Medical History (Updated 12/29/19 @ 23:44 by Latesha Celaya MD) Intellectual disability Psychotic disorder due to psychoactive substance Social History Smoking and tobacco status: current every day smoker Female Reproductive History: Date of last menstrual period: 11/01/19 Physical Exam Const: NUTRITIONAL APPEARANCE: obese HENMT: COMMON NORMALS: normocephalic and head/scalp atraumatic HEAD & SCALP: normocephalic and atraumatic Eye: COMMON NORMALS: PERRL and EOMs intact bilaterally PUPIL: Yes PERRL Neck/C-Spine: COMMON NORMALS: full ROM and supple Chest: COMMONS NORMALS: inspection of chest normal and palpation of chest normal Resp: COMMON NORMALS: normal respiratory effort, no retractions, no use of accessory muscles and clear to auscultation bilaterally AUSCULTATION: clear to auscultation bilaterally Cardio: COMMON NORMALS: regular rate, regular rhythm and no murmurs RATE: regular rate RHYTHM: regular rhythm GI: COMMON NORMALS: normal to inspection, nondistended, normoactive bowel sounds, soft to palpation, non-tender and no masses PALPATION: Yes soft : OTHER: refused exam Extremity: COMMON NORMALS: normal to inspection and full ROM RIGHT UPPER EXTREMITY: Yes lower arm (itchiness) LEFT UPPER EXTREMITY: Yes lower arm (itchiness) Neuro: COMMON NORMALS: moves all extremities and no focal motor deficits Psych: APPEARANCE: Yes disheveled MDM - Psych MDM Narrative: Medical decision making narrative: Patient presents here with methamphetamine abuse. She did use today. Patient was brought in by police for medical clearance that she has a warrant and they are resting her. She refused pelvic exam and has no signs of any serious infection. Her symptoms are all likely due to her methamphetamine abuse. Patient is stable for discharge into police custody. Discharge Plan Discharge Patient Disposition: Home, Self-Care Clinical Impression: Methamphetamine dependence, continuous Condition: Stable Prescriptions: No Action ziprasidone HCl 20 mg Capsule 20 mg PO BID 30 Days Qty: 60 RF: 1 Discharge Orders: Discharge Order (Routine); Ordered 12/29/19 Ordered By: Latesha Celaya Discharge Diet: Advance as tolerated Discharge Activity: Resume usual activity Patient Instructions: Methamphetamine Abuse (ED) Discharge Date/Time: 12/29/19 23:57 Coding Level of Care Code ED Pneudraulic Systems Mechanic for Chg Fwd Exam Comprehensive The documentation recorded by the Pee garza Ashley, accurately reflects the service I personally performed and the decisions made by Belia muhammad Korby, MD Dec 29, 2019 23:32
[2019-12-29] MEDS: LORazepam 1 mg Tablet PO (23:53)
== END 2019-12-29 23:57 | disposition home or self-care (01) ==
LOC: ER 23:49
PROVIDERS: Emergency Provider Emergency Medicine
DX: F15.20 Other stimulant dependence, uncomplicated (principal); E66.9 Obesity, unspecified; Z68.41 Body mass index [BMI] 40.0-44.9, adult; F17.200 Nicotine dependence, unspecified, uncomplicated
CPT/HCPCS: 99281; 99283

== ENCOUNTER 2020-04-01 15:17 | Inpatient (IN) | payer MEDICAID, SELFPAY ==
[2020-04-01 15:34] VITALS: BP 157/94; PULSE 113; RESP 20; TEMP 37.1; O2SAT 95; BMI 37.5
[2020-04-01 16:24] VITALS: O2SAT 97
[2020-04-01] MEDS: LORazepam 2 mg/mL INJ 1 mL IM (16:29)
[2020-04-01] MEDS: ziprasidone 20 mg/mL SDV 10 MG IM ×2 (16:29→16:30)
[2020-04-01] MEDS: water for injection-sterile 10 ML 1.2 ML (16:30)
[2020-04-01 16:38] LABS: Basophils # 0.1 10^3/uL (0.0-0.1); Basophils % 0.6 %; Eosinophils # 0.2 10^3/uL (0.0-0.8); Eosinophils % 1.3 %; Hematocrit 41.3 % (37.0-47.0); Hemoglobin 13.2 g/dL (11.5-15.3); Lymphocytes # 3.1 10^3/uL (0.8-4.8); Lymphocytes % 17.4 %; Mean Corpuscular Volume 87.7 fL (81-99); Mean Platelet Volume 9.6 fL (7.4-10.4); Monocytes # 0.9 10^3/uL (0.2-0.9); Monocytes % 4.8 %; Neutrophils # 13.3 10^3/uL (1.8-7.7); Neutrophils % 75.3 %; Nucleated Red Blood Cells % 0 %; Platelet Count 325 10^3/cmm (130-400); Red Blood Count 4.71 10^6/uL (4.1-5.3); White Blood Count 17.7 10^3/uL (4.0-10.0)
[2020-04-01 17:03] LABS: Alanine Aminotransferase 21 U/L (0-33); Albumin Level 4.4 g/dL (3.5-5.2); Alkaline Phosphatase 93 IU/L (35-105); Anion Gap 17.3 (5-19); Aspartate Amino Transferase 21 U/L (0-32); Blood Urea Nitrogen 17 mg/dL (6-20); Calcium 9.6 mg/dL (8.5-10.5); Carbon Dioxide 21 mmol/L (22-29); Chloride 107 mmol/L (98-107); Globulin 2.5 g/dL (1.3-4.6); Glomerular Filtration Rate 86.7 mL/min (90-130); Glucose 102 mg/dL (65-115); Osmolality Calculated 289 mOsm/kg (285-295); Potassium 4.3 mmol/L (3.5-5.1); Sodium 141 mmol/L (136-145); Thyroid Stimulating Hormone 1.52 uIU/mL (0.27-4.20); Total Bilirubin 0.6 mg/dL (0.15-1.2); Total Protein 6.9 g/dL (6.6-8.7)
[2020-04-01 17:04] LABS: Acetaminophen < 5.0 ug/mL (10-30); Alcohol Level < 10 mg/dL (0-10); Salicylate < 0.3 mg/dL (3-10)
[2020-04-01 17:10] VITALS: BP 114/66; PULSE 101; O2SAT 94
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
[2020-04-01 17:45] LABS: Add Urine Microscopic? NO
[2020-04-01 17:48] LABS: Bilirubin Urine Neg (NEGATIVE); Blood Urine Neg (Negative); Glucose Urine UA Norm (Normal); Ketones Urine Negative (Negative); Leukocyte Esterase Urine Negative (Negative); Nitrate Urine Negative (Negative); Protein Urine Neg (Negative); Specific Gravity, Urine 1.025 (1.005-1.030); Urine Appearance Clear (CLEAR); Urine Color Yellow (Yellow); Urobilinogen Urine Norm (Negative); pH Urine 5 (5-7)
[2020-04-01 17:57] LABS: Amphetamines Screen Urine Positive (Negative); Barbiturates Screen Urine Negative (Negative); Benzodiazepines Screen Urine Negative (Negative); Cocaine Screen Urine Negative (Negative); Opiate Screen Urine Negative (Negative); PCP Screen Urine Negative (Negative); THC Screen Urine Negative (Negative)
[2020-04-01 18:36] VITALS: BP 124/71; PULSE 92; O2SAT 94
[2020-04-01 20:35] LABS: HCG Qualitative Urine. Negative (Negative)
[2020-04-01 20:42] VITALS: BP 103/70; PULSE 101; RESP 18; TEMP 37; O2SAT 98
[2020-04-02 06:00] VITALS: BP 99/61; PULSE 89; RESP 19; TEMP 37.1; O2SAT 99
--- NOTE | 2020-04-02 10:38 | PC.RESP ---
Smoking Cessation information and a schedule of classes sent to patient.
--- NOTE | 2020-04-02 10:51 | PC.SOCIAL ---
Tripoler has talked to guardian. he wants level II completed. He asked about the status. He was told it is pending.
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
[2020-04-02 14:00] VITALS: BP 118/73; PULSE 84; RESP 18; TEMP 36.7; O2SAT 98
[2020-04-02 22:00] VITALS: BP 128/86; PULSE 92; RESP 18; TEMP 36.9; O2SAT 97
[2020-04-03 06:00] VITALS: BP 133/79; PULSE 85; RESP 17; TEMP 37.3; O2SAT 99
--- NOTE | 2020-04-03 16:07 | PM.NDC ---
Diagnoses at Discharge Discharge Diagnosis (1) Methamphetamine dependence, continuous: Status: Acute Problem details: Patient is high risk of relapse but will be with her grandmother, whom she does not want to offend with her substance abuse. (2) Psychotic disorder due to psychoactive substance: Status: Acute Problem details: There is no psychosis in evidence. Reason for Visit Reason for Visit: MHE/POLICE ESCORTED Hospital Course Hospital Course The patient does not seem to have learned a lot since her stay in the emergency department. She never really dropped her denial. Discharge Summary The patient is now nonpsychotic. She is calm friendly and free of aggression. She denies suicidal or homicidal ideation, plan or intent. She will be in a safe place away from dealers and druggy friends Involuntary Hold Information 96 Hour Hold: 96 Hour Involuntary Admission: Yes 96 Hour Hold Ending Date: 04/07/20 96 Hour Hold Ending Time: 16:30 Mental Status Exam MSE Comments: This is a big girl. She is clean and her hair is washed. Mood is cheerful affect is appropriate thought processes are integrated and free of any racing, blocking or looseness of association. Speech is of normal rate and volume, without dysarthria, aprosody or pressure. Cognitive functions seem not to be scrambled today. However, insight and judgment leave something to be desired. She denies suicidal or homicidal ideation, plan or intent. There is no evidence of psychosis, such as but not limited to hallucinations, delusions, ideas of reference, etc. Discharge Data Vitals: Last Vital Signs Temp 99.2 F 04/03/20 06:00 Pulse 85 04/03/20 06:00 Resp 17 04/03/20 06:00 BP 133/79 04/03/20 06:00 Pulse Ox 99 04/03/20 06:00 Discharge Plan Discharge Patient Disposition: Home, Self-Care Condition: Stable Prescriptions: No Action No Known Home Medications RF: 0 Discharge Orders: Discharge Order (Routine); Ordered 04/03/20 Ordered By: Denny Baldwin Discharge Diet: Usual diet Discharge Activity: Resume usual activity Discharge Attestations NPU Time Spent in Discharge Care*: greater than 30 min Specific Discharge Activities: Specific discharge activities: educating patient, discussing with immigration case worker/social workers/dc planners, documenting/other paperwork and evaluating patient/reviewing data Time Spent in Smoking Cessation: Time spent discussing smoking cessation with patient: more than 10 minutes Details of Smoking Cessation Education: Risk of pulmonary decline, cancer, cardiovascular disease, methods of detoxing from nicotine, support groups Coding Level of Care Code Acute Carding Machine Feeder for Germaineg Fwd Diagnoses Methamphetamine dependence, continuous F15.20 Psychotic disorder due to psychoactive substance F19.460
[2020-04-03 16:25] VITALS: BP 133/79; PULSE 85; RESP 17; TEMP 37.3; O2SAT 99
== END 2020-04-03 16:42 | disposition home or self-care (01) | DRG 897 ==
LOC: ER 17:22 → NP 18:06
PROVIDERS: Family Medicine
DX: F15.259 Other stimulant dependence with stimulant-induced psychotic disorder, unspecified (principal); R45.851 Suicidal ideations; F17.210 Nicotine dependence, cigarettes, uncomplicated
CPT/HCPCS: 12345; 36415; 80053; 80306; 80307; 81003; 81025; 84443; 85025; 96372; 99284; J2060; J3486

== ENCOUNTER 2020-04-01 15:17 | Emergency (ER) | payer MEDICAID, SELFPAY | END 2020-04-01 19:16 | disposition admitted as inpatient to this hospital (09) | LOC: ER 04-08 01:25 | PROVIDERS: Emergency Provider Family Medicine | DX: R45.851 Suicidal ideations (principal); F20.9 Schizophrenia, unspecified; F23 Brief psychotic disorder; F17.210 Nicotine dependence, cigarettes, uncomplicated | CPT/HCPCS: 12345; 36415; 80053; 80306; 80307; 81003; 81025; 84443; 85025; 96372; 99284; 99285; J2060; J3486 ==

== ENCOUNTER 2020-05-15 10:31 | Inpatient (IN) | payer MEDICAID, SELFPAY ==
[2020-05-15] VITALS (8 sets, daily range): BP systolic 114–160; BP diastolic 74–133; PULSE 74–118; RESP 16–18; TEMP 36.5–37.2; O2SAT 98–99; BMI 28.1
[2020-05-15] MEDS: LORazepam 2 mg/mL INJ 1 mL IM (11:10)
--- NOTE | 2020-05-15 11:10 | ED_ITS ---
HPI - Psych General: Chief Complaint: Psychiatric Symptoms Stated Complaint: VIOLENT BEHAVIOR Time Seen by Provider: 05/15/20 10:32 History of Present Illness: HPI Narrative: 24-year-old female brought in by [facility]. She has had multiple admissions in the past of the [facility]. Last time she was here on 04 01 I seen her she was in a manic phase at that point she was suicidal and had acute psychosis. Today when she is brought in PD had multiple calls for the night for service at her grandmother's residence where she was staying she was behaving erratically yelling suicide her disturbing the peace given a citation they returned and she was beating on the door trying to get and states she has not taken her medicines this morning grandmother would not let her in. She continued to behave erratically and told the police captain senior she was hearing voices that the little man in her head was telling her she needed dope. She made several comments to me during our interview about they keep telling me things but when I tried to get her to confirm who they was she refused to discuss it any further. She denies any suicidal or homicidal ideation. However she is her behavior is erratic and she is basically yelling and screaming the entire time she is here is difficult to get her to calm down enough to have any kind of conversation to get anything from her. She does make several comments suggestive of the fact that she is hearing voices. Stating they keep telling me . Please officer wrote an affidavit confirming that she is hearing voices. MD complaint: altered mental status and other (Manic phase with auditory hallucinations.) Onset (ago): day(s) Duration: constant History of same: Yes Relieving factors: medication Exacerbating factors: none Context: not taking psychiatric medications (Missed at least 1 if not 2 most recent doses of her medications) Associated psychiatric symptoms: auditory hallucinations Associated symptoms: Reports auditory hallucinations, racing thoughts and other (Acute psychosis, manic phase) Treatments prior to arrival: physical restraints Review of Systems Const: Denies: fever(s), chills, body aches, change in appetite, fatigue or malaise ENMT: Denies: throat pain, ear or mastoid pain, nasal discharge or nasal congestion Card: Denies: chest pain, edema, dyspnea on exertion or orthopnea Resp: Denies: dyspnea, productive cough or non-productive cough GI: Denies: abdominal pain, nausea, vomiting, hematemesis, coffee ground emesis, diarrhea, constipation, bloating, hematochezia or melena : Denies: flank pain, difficulty voiding, dysuria, urinary frequency or urinary urgency Skin/Breast: Denies: rash or pruritus Psych: Reports: auditory hallucinations PFSH ED PFSH: Medical History Intellectual disability Methamphetamine dependence, continuous Patient is high risk of relapse but will be with her grandmother, whom she does not want to offend with her substance abuse. Psychotic disorder due to psychoactive substance There is no psychosis in evidence. Social History Smoking and tobacco status: current every day smoker Physical Exam Const: COMMON NORMALS: no acute distress GENERAL APPEARANCE: cooperative and comfortable ORIENTATION/CONSCIOUSNESS: Yes awake, Yes oriented to person, Yes oriented to place and Yes oriented to time HENMT: COMMON NORMALS: normocephalic, atraumatic, hearing grossly normal bilaterally, external ears normal, EAC's normal, TM's normal bilaterally, Normal nasal mucous membranes and turbinates present, moist oral mucous membranes and oropharynx normal HEAD & SCALP: normocephalic and atraumatic NOSE: Normal nasal mucous membranes and turbinates present EXTERNAL EAR: Yes external ears normal EXTERNAL AUDITORY CANAL: EAC's normal TYMPANIC MEMBRANE: TM's normal bilaterally Eye: COMMON NORMALS: Equal, round and reactive pupils present, EOMs intact bilaterally, conjunctivae normal and no scleral icterus CONJUNCTIVA: Yes conjunctivae normal PUPIL: Yes Equal, round and reactive pupils present Neck/C-Spine: COMMON NORMALS: full ROM, no lymphadenopathy, supple and no JVD Lymph: LYMPHATIC: no lymphadenopathy noted and no lymphedema noted Resp: COMMON NORMALS: normal respiratory effort, No retractions, No use of accessory muscles and clear to auscultation bilaterally AUSCULTATION: clear to auscultation bilaterally Cardio: COMMON NORMALS: no JVD, regular rate, regular rhythm and No murmurs present (Cardio) RATE: regular rate RHYTHM: regular rhythm GI: COMMON NORMALS: Soft to palpation and No hepatosplenomegaly present AUSCULTATION: Yes normoactive bowel sounds PALPATION: Yes Soft to palpation, No Tenderness to palpation present (GI), No Guarding due to palpation present (GI) and Yes No hepatosplenomegaly present Extremity: COMMON NORMALS: normal to inspection, capillary refill normal, no clubbing, cyanosis or edema, no calf tenderness and no pedal edema Neuro: SENSORIUM/ORIENTATION: Yes oriented to person, Yes oriented to place and Yes oriented to time Skin: COMMON NORMALS: no rashes or lesions noted GENERAL SKIN EXAM: no rashes or lesions noted MDM - Psych MDM Narrative: Medical decision making narrative: Patient placed on a 96-hour hold. She is having hallucinations and behavioral disturbance she has not gotten her medications and seems to have worsened. She is extremely uncooperative in the emergency room. She was given Geodon and Ativan and is no longer yelling and screaming at us and is more approachable. We will go ahead and admit her have discussed with Dr. Hickman he will be attending. Lab Data: Labs: Lab Results 05/15/20 05/15/20 05/15/20 Range/Units 11:15 11:15 11:26 WBC 17.3 H (4.0-10.0) 10^3/ uL RBC 5.22 (4.1-5.3) 10^6/u L Hgb 14.3 (11.5-15.3) g/dL Hct 45.3 (37.0-47.0) % MCV 86.8 (81-99) fL MCH 27.4 L (28.0-34.0) pg MCHC 31.6 (30.0-36.0) g/dL RDW 11.9 L (12.1-15.1) % Plt Count 375 (130-400) 10^3/c mm MPV 9.7 (7.4-10.4) fL Neut % (Auto) 78.3 % Lymph % (Auto) 15.8 % Gray % (Auto) 4.4 % Eos % (Auto) 0.8 % Baso % (Auto) 0.4 % Neut # (Auto) 13.57 H (1.8-7.7) 10^3/u L Lymph # (Auto) 2.7 (0.8-4.8) 10^3/u L Gray # (Auto) 0.8 (0.2-0.9) 10^3/u L Eos # (Auto) 0.1 (0.0-0.8) 10^3/u L Baso # (Auto) 0.1 (0.0-0.1) 10^3/u L Nucleated RBC % (a uto) 0 % Nucleated RBCs # 0.0 /100WBC Sodium 140 (136-145) mmol/L Potassium 4.1 (3.5-5.1) mmol/L Chloride 101 (98-107) mmol/L Carbon Dioxide 25 (22-29) mmol/L Anion Gap 18.1 (5-19) BUN 13 (6-20) mg/dL Creatinine 1.0 H (0.5-0.9) mg/dL GFR Calculation 67.0 L (90-130) mL/min Glucose 119 H (65-115) mg/dL Calculated Osmolal ity 287 (285-295) mOsm/k g Calcium 10.1 (8.5-10.5) mg/dL Total Bilirubin 1.4 H (0.15-1.2) mg/dL AST 20 (0-32) U/L ALT 26 (0-33) U/L Alkaline Phosphata se 103 (35-105) IU/L Total Protein 7.9 (6.6-8.7) g/dL Albumin 5.0 (3.5-5.2) g/dL Globulin 2.9 (1.3-4.6) g/dL HCG, Qual Negative (Negative) Urine Color (Yellow) Urine Appearance (CLEAR) Urine pH (5-7) Ur Specific Gravit y (1.005-1.030) Urine Protein (Negative) Urine Glucose (UA) (Normal) Urine Ketones (Negative) Urine Blood (Negative) Urine Nitrate (Negative) Urine Bilirubin (NEGATIVE) Urine Urobilinogen (Negative) mg/dL Ur Leukocyte Gladis ase (Negative) Urine RBC (0-2) /hpf Urine WBC (0-5) /hpf Ur Squamous Epith Cells (0-5) Amorphous Sediment Urine Bacteria (NONE) Urine Mucus Salicylates < 0.3 L (3-10) mg/dL Urine Opiates Scre en (Negative) ng/mL Acetaminophen < 5.0 L (10-30) ug/mL Ur Barbiturates Sc reen (Negative) ng/mL Ur Phencyclidine S crn (Negative) ng/mL Ur Amphetamines Sc reen (Negative) ng/mL U Benzodiazepines Scrn (Negative) ng/mL Urine Cocaine Scre en (Negative) ng/mL U Marijuana (THC) Screen (Negative) ng/mL Ethyl Alcohol < 10 (0-10) mg/dL 05/15/20 05/15/20 Range/Units 11:26 11:26 WBC (4.0-10.0) 10^3/ uL RBC (4.1-5.3) 10^6/u L Hgb (11.5-15.3) g/dL Hct (37.0-47.0) % MCV (81-99) fL MCH (28.0-34.0) pg MCHC (30.0-36.0) g/dL RDW (12.1-15.1) % Plt Count (130-400) 10^3/c mm MPV (7.4-10.4) fL Neut % (Auto) % Lymph % (Auto) % Gray % (Auto) % Eos % (Auto) % Baso % (Auto) % Neut # (Auto) (1.8-7.7) 10^3/u L Lymph # (Auto) (0.8-4.8) 10^3/u L Gray # (Auto) (0.2-0.9) 10^3/u L Eos # (Auto) (0.0-0.8) 10^3/u L Baso # (Auto) (0.0-0.1) 10^3/u L Nucleated RBC % (a uto) % Nucleated RBCs # /100WBC Sodium (136-145) mmol/L Potassium (3.5-5.1) mmol/L Chloride (98-107) mmol/L Carbon Dioxide (22-29) mmol/L Anion Gap (5-19) BUN (6-20) mg/dL Creatinine (0.5-0.9) mg/dL GFR Calculation (90-130) mL/min Glucose (65-115) mg/dL Calculated Osmolal ity (285-295) mOsm/k g Calcium (8.5-10.5) mg/dL Total Bilirubin (0.15-1.2) mg/dL AST (0-32) U/L ALT (0-33) U/L Alkaline Phosphata se (35-105) IU/L Total Protein (6.6-8.7) g/dL Albumin (3.5-5.2) g/dL Globulin (1.3-4.6) g/dL HCG, Qual (Negative) Urine Color Dark yellow (Yellow) Urine Appearance Clear (CLEAR) Urine pH 5 (5-7) Ur Specific Gravit y 1.020 (1.005-1.030) Urine Protein 1+ H (Negative) Urine Glucose (UA) Norm (Normal) Urine Ketones 1+ H (Negative) Urine Blood Neg (Negative) Urine Nitrate Negative (Negative) Urine Bilirubin 1+ H (NEGATIVE) Urine Urobilinogen 1 H (Negative) mg/dL Ur Leukocyte Gladis ase Negative (Negative) Urine RBC None (0-2) /hpf Urine WBC 0-4 H (0-5) /hpf Ur Squamous Epith Cells 0-4 H (0-5) Amorphous Sediment Not Reportable Urine Bacteria 2+ H (NONE) Urine Mucus 2+ Salicylates (3-10) mg/dL Urine Opiates Scre en Negative (Negative) ng/mL Acetaminophen (10-30) ug/mL Ur Barbiturates Sc reen Negative (Negative) ng/mL Ur Phencyclidine S crn Negative (Negative) ng/mL Ur Amphetamines Sc reen Positive H (Negative) ng/mL U Benzodiazepines Scrn Negative (Negative) ng/mL Urine Cocaine Scre en Negative (Negative) ng/mL U Marijuana (THC) Screen Positive H (Negative) ng/mL Ethyl Alcohol (0-10) mg/dL Discharge Plan Discharge Patient Disposition: Admitted As Inpatient Admit Provider: Ashish Hickman Clinical Impression: Acute psychosis, Schizophrenia, Bipolar disorder Condition: Stable Discharge Date/Time: 05/15/20 13:10 Coding Level of Care Code ED Radiation / Chemistry Technician for Walt Fwd Exam Comprehensive
[2020-05-15 11:24] LABS: Basophils # 0.1 10^3/uL (0.0-0.1); Basophils % 0.4 %; Eosinophils # 0.1 10^3/uL (0.0-0.8); Eosinophils % 0.8 %; Hematocrit 45.3 % (37.0-47.0); Hemoglobin 14.3 g/dL (11.5-15.3); Lymphocytes # 2.7 10^3/uL (0.8-4.8); Lymphocytes % 15.8 %; Mean Corpuscular HGB Conc 31.6 g/dL (30.0-36.0); Mean Corpuscular Hemoglobin 27.4 pg (28.0-34.0); Mean Corpuscular Volume 86.8 fL (81-99); Mean Platelet Volume 9.7 fL (7.4-10.4); Monocytes # 0.8 10^3/uL (0.2-0.9); Monocytes % 4.4 %; Neutrophils # 13.57 10^3/uL (1.8-7.7); Neutrophils % 78.3 %; Nucleated Red Blood Cells % 0 %; Platelet Count 375 10^3/cmm (130-400); Red Blood Count 5.22 10^6/uL (4.1-5.3); Red Cell Distribution Width 11.9 % (12.1-15.1); White Blood Count 17.3 10^3/uL (4.0-10.0)
[2020-05-15 11:36] LABS: HCG Qualitative Urine. Negative (Negative)
[2020-05-15 11:41] LABS: Alanine Aminotransferase 26 U/L (0-33); Alkaline Phosphatase 103 IU/L (35-105); Anion Gap 18.1 (5-19); Aspartate Amino Transferase 20 U/L (0-32); Blood Urea Nitrogen 13 mg/dL (6-20); Calcium 10.1 mg/dL (8.5-10.5); Carbon Dioxide 25 mmol/L (22-29); Chloride 101 mmol/L (98-107); Globulin 2.9 g/dL (1.3-4.6); Glucose 119 mg/dL (65-115); Osmolality Calculated 287 mOsm/kg (285-295); Potassium 4.1 mmol/L (3.5-5.1); Sodium 140 mmol/L (136-145); Total Bilirubin 1.4 mg/dL (0.15-1.2); Total Protein 7.9 g/dL (6.6-8.7)
[2020-05-15 11:41] LABS: Amphetamines Screen Urine Positive (Negative); Barbiturates Screen Urine Negative (Negative); Benzodiazepines Screen Urine Negative (Negative); Cocaine Screen Urine Negative (Negative); Opiate Screen Urine Negative (Negative); PCP Screen Urine Negative (Negative); THC Screen Urine Positive (Negative)
[2020-05-15 11:48] LABS: Acetaminophen < 5.0 ug/mL (10-30); Alcohol Level < 10 mg/dL (0-10); Salicylate < 0.3 mg/dL (3-10)
[2020-05-15] MEDS: water for injection-sterile 10 ML (11:48)
[2020-05-15] MEDS: ziprasidone 20 mg/mL SDV IM (11:48)
[2020-05-15 11:49] LABS: Blood Urine Neg (Negative); Glucose Urine UA Norm (Normal); Ketones Urine 1+ (Negative); Protein Urine 1+ (Negative); Urine Appearance Clear (CLEAR); Urine Color Dark Yellow (Yellow); pH Urine 5 (5-7)
[2020-05-15 11:50] LABS: Add Urine Culture? No; Add Urine Microscopic? YES; Bacteria Urine 2+; Bilirubin Urine 1+ (NEGATIVE); Leukocyte Esterase Urine Negative (Negative); Mucus Urine 2+; Nitrate Urine Negative (Negative); Squamous Epithelial Cell Urine 0-4 (0-5); Urobilinogen Urine 1 mg/dL (Negative); WBC Urine 0-4 /hpf (0-5)
[2020-05-16 06:00] VITALS: BP 136/80; PULSE 82; RESP 18; TEMP 36.9; O2SAT 98
--- NOTE | 2020-05-16 09:18 | PM.NHP ---
Providers/Chief Complaint Admitting Physician: Ashish Hickman MD Chief Complaint: VIOLENT BEHAVIOR HPI [facility] History of Present Illness Carla Young is a 24 year old female who is known to this insurance underwriter from previous hospitalizations and presents to the emergency room with the [facility] police department. She was last seen in the emergency room on 04-01 where she was in a manic phase. She was brought by the police because they had multiple calls to her grandmother?s residence where she had been staying and was supposedly behaving erratically, yelling, reporting suicidal thoughts, and she returned back and they found her trying to enter the home, beating on the door, and her grandmother endorsed that she had not been taking her medication, and because she had not been taking her medication, she would not let her in. This was one of the stipulations for her to be able to stay there. She had been talking about hearing voices telling her that she needed dope, and then she got to the emergency room and was intermittently resistant to the interview. She was admitted to the neuropsychiatric unit but not on a 96-hour hold because she has a guardian and the guardian agreed with admission. She was admitted to the neuropsychiatric unit for definitive treatment of those issues. She presents today with a very off in the distance look in her eyes, and unable to really communicate specifics of what was going on, only doing what she often does which is ask for a cigarette and asking when she would be discharged. We discussed the risks, benefits, and alternatives of restarting her medication, but in regard to her injection, she could not tell us when it was last administered, but she said she would consider taking it again. She was currently saying though she did not know if she wanted to get on any new medication at this time. She was a very poor historian. I have included an excerpt of her last hospitalization with this insurance underwriter, though she did have a hospitalization that lasted a couple days back in March. She denied any substantive changes to her history, however she continues to struggle with addiction and lack of dependable housing because her grandmother will not allow her to be in the house when she is actively using or if she is refusing her medication, so she ends up wandering the surrounding towns, approaching vehicles, there are messages and stories on Facebook with picture of her approaching cars and people saying that she is asif that she did not get shot because they did not know who she was. She would pop into a window and ask for money and things of that nature. She continues when asked about this, to deny that she is doing anything other than from a distance asking ?can I have a dollar,? but mostly these posts suggests that she is specific that she wants at least twenty dollars. Per last [facility] eval with this insurance underwriter: History of Present Illness Carla Young is a 24 year old female who presented to the unit via the ED reporting that she had gotten a conflict with her mother and to the outcome of that conflict was that she got kicked out and she had nowhere else to go and her mother reported that she (the patient) was feeling suicidal. She reports that she never felt that way and it was just a product of this conflict. She spent the rest of the session in date and trying to get this insurance underwriter to get on a phone with anyone who might agreed to let her come there so she can be discharged today. She was classically Carla and that she was having tantrums jumping up and down having screaming fits when she did not get her way but otherwise she was calm. We reviewed her last evaluation with this insurance underwriter and determined that outside of being kicked out by her mom there have been no changes in her psychosocial circumstances. We discussed the plan to work with the treatment team on possible options for after discharge and to take a look at her medication regimen with a plan to make changes as indicated. However significant concerns exist for this being behavioral and a indication that home is becoming a less viable option for Carla.who presented to the unit via the ED reporting that she had gotten a conflict with her mother and to the outcome of that conflict was that she got kicked out and she had nowhere else to go and her mother reported that she (the patient) was feeling suicidal. She reports that she never felt that way and it was just a product of this conflict. She spent the rest of the session in date and trying to get this insurance underwriter to get on a phone with anyone who might agreed to let her come there so she can be discharged today. She was classically Carla and that she was having tantrums jumping up and down having screaming fits when she did not get her way but otherwise she was calm. We reviewed her last evaluation with this insurance underwriter and determined that outside of being kicked out by her mom there have been no changes in her psychosocial circumstances. We discussed the plan to work with the treatment team on possible options for after discharge and to take a look at her medication regimen with a plan to make changes as indicated. However significant concerns exist for this being behavioral and a indication that home is becoming a less viable option for Carla. Per last eval with this insurance underwriter: History of Present Illness Date of Service: Sep 13, 2019 Chief Complaint: I don't know why I'm here. Can I go home? HPI: Carla presented to the inpatient unit reporting that she did not understand why she has been hospitalized or why she is on a 96-hour hold. She appear to be a poor historian as she can give no ideas of why concerns were raised. She went to the [facility] where she is known and she reports that the problem had something to do with her not wanting to see a therapist. She denies any changes or issues. She endorses compliance with her medication and that she is doing well and has been doing well. History of her recent hospitalizations which are frequent have been included in this document. She denies any change in her history since her last hospitalizations. She denies any problems or any need for any medication interventions and was mostly focused on when would she be discharged. Per ED eval: HISTORY OF PRESENT ILLNESS Chief Complaint: BEHAVIOR CHANGE. This started today. (23 yo female presents to ED on a 96 hour hold. The patient states she was woke to be brought to the ED and she doesn't know why. She said her grandma was mad because the patient walked out of her [facility] appointment and so she had the patient placed on a 96 hour hold since the patient won't go to her appointments nor will she take her medications. When the patient was asked about having hallucinations, depression, SI or HI, the patient kept saying no and would not look at the physician but would only look to the side and repeatedly answer no . The patient said she last used methamphetamine today. After asking her many questions regarding her mental state, she said everything is no and everything is yes. ). The patient is non-compliant with medication. Recent methamphetamines use. Last used drugs today. Has not been sleeping. Has exhibited unusual behavior. Has been paranoid (per family members in the affidavit). She has had hallucinations (per family members though she denies it). The symptoms are described as severe. No injury is present. Similar symptoms previously. Recent medical care: The patient was seen recently by a health care provider. REVIEW OF SYSTEMS All other systems reviewed and are negative. PAST HISTORY See nurses notes. Lung disease. Prior suicide attempt. ( PCP - none). Myocardial infarction. Asthma. Anxiety. Bipolar disorder. Depression. Schizophrenia and psychosis (Intermittent Explosive Disorder, Personality Disorder, Adjustment DIsorder). Previous suicide attempts. Alcoholism. Alcoholism. Substance abuse. ( Lifestyle/Substance Problems). Surgeries: Appendectomy. SOCIAL HISTORY Current every day light tobacco smoker (cigarette)- less than 1/2 a pack per day. Occasional alcohol use; consumes beer and liquor. History of heavy drug use: methamphetamines. Recently used drugs today. ADDITIONAL NOTES The nursing notes have been reviewed. PHYSICAL EXAM Vital Signs: 09/12/2019 22:04 BP: 168/82. HR: 105. RR: 18. O2 saturation: 98%. Temp: 98.1 F. Appearance: Alert. No acute distress. Appearance is normal. Neck: Neck supple. CVS: Tachycardia. Respiratory: Breath sounds normal. Abdomen: Nontender. Skin: Normal skin color. Extremities: Extremities exhibit normal ROM. Psych / Neuro: Oriented X 3. Mood and affect normal. Speech normal. Cognition normal. Thought process and content normal. Insight and judgement not normal. She does not appear to understand hers illness or feel treatment is necessary. Per last eval: History of Present Illness Date of Service: Jun 04, 2019 Chief Complaint: Farmworker General stated that she wanted to harm herself. Carla is denying the allegation. HPI: Carla is a 23 year old white female who was referred for suicidal thoughts. She denies suicidal thoughts. The last time Carla had suicidal thoughts was six months ago. She denies a history of suicide attempts. Moods are happy and a little anxious. The patient is able to have fun. Sleep is good. Appetite is good. Energy level is low. Concentration is good. She denies crying spells and guilty feelings. Motivation is good. She denies homicidal and suicidal thoughts. She denies excessive worry, panic attacks, compulsions and obsessions. The patient denies parisa and irritability. Carla denies hallucinations, paranoia, ideas of references, thought broadcasting, thought insertion and thought withdrawal. Meds NPU Home Medications Medication Instructions Recorded Confirmed Last Taken Type No Known Home Medications 04/02/20 05/15/20 Unknown History Allergies Allergy/AdvReac Type Severity Reaction Status Date / Time haloperidol [From Haldol] Allergy Intermediate ADR-Shakine Verified 05/15/20 10:40 ss PFSH NPU PFSH: Medical History (Updated 05/19/20 @ 10:14 by Ashish Hickman MD) Intellectual disability Methamphetamine dependence, continuous Patient is high risk of relapse but will be with her grandmother, whom she does not want to offend with her substance abuse. Psychotic disorder due to psychoactive substance There is no psychosis in evidence. Social History Smoking and tobacco status: current every day smoker Mental Status Exam MSE Comments: This is an obese, white female, with limited dress, grooming, and eye contact. No abnormal movements except for psychomotor retardation. Semi-cooperative with exam in mild distress. Speech was limited and decreased rate and volume. Mood described as fine; affect subdued. Thought process, linear. Thought content: patient denied any suicidal or homicidal ideation, there were no delusions reported but clear paranoid and bizarre delusions exist. She denied auditory or visual hallucinations at first but then said that she does hear voices. She at times does appear to be attending to internal stimuli. She is alert and oriented times three. Insight and judgment are impaired. Impulse control is impaired. Intellectual ability appears limited. Vitals/I&O/Wt Last Vital Signs Temp 98.4 F 05/16/20 06:00 Pulse 82 05/16/20 06:00 Resp 18 05/16/20 06:00 BP 136/80 05/16/20 06:00 Pulse Ox 98 05/16/20 06:00 Weight last 48 hrs Weight 106.708 kg Weight 81.647 kg Data NPU : 05/15/20 11:15 05/15/20 11:15 A&P Assessment and plan (1) Acute psychosis: Status: Acute (2) Bipolar disorder: Status: Acute (3) Methamphetamine dependence: Status: Acute (4) Intellectual disability: Status: Acute Additional A&P Information This is a 24 year old, white female, with a long history of mood instability, active addiction, and question of intellectual limitations, who presents again with active addiction, aggressive behavior, bizarre and erratic behavior in the community, admitted per her guardian?s request. Continue current medication. Will do some research to figure out when she was last actually taking the Abilify and the last time she had the injection, and likely restart that. We will discuss with guardian where he would like things to go from here as far as housing and medication. Continue q 15-minute checks for safety. Encourage individual, group, and milieu therapy. Will work with guardian to figure out whether some level of placement or rehab or what type of facility we might jointly agree would be an option for her to have some stabilization and ongoing success. Involuntary Hold Information 96 Hour Hold: 96 Hour Involuntary Admission: Yes 96 Hour Hold Ending Date: 05/21/20 96 Hour Hold Ending Time: 12:01 Attestations NPU Medical Necessity Statement*: Inpatient hospitalization is medically necessary, and the clinically appropriate intervention at this time. We will monitor medications, start them, and adjust as indicated. She will be in the hospital for two midnights. Likely length of stay four to six days. Coding Level of Care Code Acute Car Pilot for Walt Fwd Diagnoses Acute psychosis F23 Bipolar disorder F31.9 Methamphetamine dependence F15.20 Intellectual disability F79
[2020-05-16 13:42] VITALS: BP 139/87; PULSE 101; RESP 18; TEMP 36.9
[2020-05-16 20:15] VITALS: BP 99/64; PULSE 78; RESP 14; TEMP 37.1; O2SAT 96
[2020-05-16] MEDS: LORazepam 2 mg/mL INJ 1 mL IM (23:48)
--- NOTE | 2020-05-16 23:49 | PC.NURSE ---
PRN ATIVAN PT IN ROOM YELLING AND BECOMING MORE AGGRAVATED AND AGGRESSIVE. ATIVAN 2MG IM ADMINISTERED. WILL MONITOR FOR MEDICATION EFFECTIVENESS.
[2020-05-17] MEDS: trazodone 50 mg Tablet PO ×2 (00:15→20:42)
[2020-05-17 06:00] VITALS: RESP 15
--- NOTE | 2020-05-17 13:51 | P.PN_ITS ---
Subjective NPU Subjective: Interval history: Carla presents today focusing on being able to be discharged. We discussed the fact that the outreach and education social worker was able to speak to her guardian about discharge planning, and at this point the desire is for her to be in a locked facility unfortunately. She has been in multiple times this year, each time the plan was to give her the opportunity to return to the community, and her grandparents have been helpful, other people have stepped up, and we find ourselves here with the same result after these trials, so her guardian is now ready to move forward with her being in a more controlled living environment. There is some question about whether or not the medication has been effective, or she was not taking the medication. We are working to come to a decision on what to do with the medication. Right now, she is saying she does not really want to take anything, she thinks she is fine, and at a certain level, major part of her behavioral dysregulation is the use of methamphetamine and marijuana in her life. Her impulse control and executive functioning are limited. We discussed the fact that this is likely as much a part of her challenge as being nonadherent to the medication. She endorses that she slept a little better last night, and that she is eating fine. Mental Status Exam MSE Comments: This is an obese, white female, with limited dress, grooming, and eye contact. No abnormal movements except for psychomotor retardation. Semi-cooperative with exam in mild distress. Speech was limited and decreased rate and volume. Mood described as better; affect subdued. Thought process, linear. Thought content: patient denied any suicidal or homicidal ideation, there were no delusions reported but clear paranoid and bizarre delusions exist. She denied auditory or visual hallucinations at first but then said that she does hear voices. She at times does appear to be attending to internal stimuli. She is alert and oriented times three. Insight and judgment are impaired. Impulse control is impaired. Intellectual ability appears limited. Vitals/I&O/Wt Last Vital Signs Temp 98.0 F 05/17/20 20:00 Pulse 97 05/17/20 20:00 Resp 18 05/17/20 20:00 BP 114/79 05/17/20 20:00 Pulse Ox 96 05/17/20 20:00 Weight last 48 hrs Weight 106.708 kg Data NPU : 05/15/20 11:15 05/15/20 11:15 A&P Additional A&P Information (1) Acute psychosis: (2) Bipolar disorder: (3) Methamphetamine dependence: (4) Intellectual disability: This is a 24 year old, white female, with a long history of mood instability, active addiction, and question of intellectual limitations, who presents again with active addiction, aggressive behavior, bizarre and erratic behavior in the community, admitted per her guardian?s request. Continue current medication. Will do some research to figure out when she was last actually taking the Abilify and the last time she had the injection, and likely restart that. We will discuss with guardian where he would like things to go from here as far as housing and medication. Continue q 15-minute checks for safety. Encourage individual, group, and milieu therapy. Will work with guardian to figure out whether some level of placement or rehab or what type of facility we might jointly agree would be an option for her to have some stabilization and ongoing success. Involuntary Hold Information 96 Hour Hold: 96 Hour Involuntary Admission: Yes 96 Hour Hold Ending Date: 05/21/20 96 Hour Hold Ending Time: 12:01 Attestations NPU Medical Necessity Statement*: Inpatient hospitalization is medically necessary, and the clinically appropriate intervention at this time. We will monitor medications, start them, and adjust as indicated. She will be in the hospital for two midnights. Likely length of stay 3-5 days. Coding Level of Care Code Acute [employer] for Walt Cuellar
[2020-05-17 14:00] VITALS: BP 134/77; PULSE 97; RESP 20; TEMP 36.6; O2SAT 96
--- NOTE | 2020-05-17 17:00 | PC.RESP ---
Smoking Cessation sent to patient.
[2020-05-17 20:00] VITALS: BP 114/79; PULSE 97; RESP 18; TEMP 36.7; O2SAT 96
[2020-05-17] MEDS: hyDROXYzine 25 mg Capsule 50 MG PO (20:41)
--- NOTE | 2020-05-17 21:52 | PC.NURSE ---
PRN TRAZODONE & VISTARIL PT GIVEN TRAZODONE 50 MG FOR SLEEP AID AND VISTARIL 50 MG FOR INCREASING ANXIETY PER PT REQUEST.
[2020-05-18 06:00] VITALS: PULSE 78; RESP 19; O2SAT 94
[2020-05-18 13:51] VITALS: BP 103/63; PULSE 83; RESP 181; TEMP 37.1; O2SAT 98
--- NOTE | 2020-05-18 18:59 | P.PN_ITS ---
Subjective NPU Subjective: Interval history: The patient presents today reporting that her grandmother was saying that she could go home. We explained to her that she has a guardian and it is not her grandmother. Her grandmother can let us know that this is a possibility. We discussed the fact that her unfettered addiction as well as some of the dangerous behaviors in the community, make it so that her guardian has concerns and reservations about her returning to any independent community situation, and that the treatment team concurs. We discussed the fact that if she took the medication that might improve the likelihood that she will have less difficulty doing what she needs to. What was able to be determined was that the last time that we can determine that she had her Abilify injection was like six months ago, so she should have had a November injection, and she has not had one since that we can identify. She said she would take the injection again and start the medication. We agreed that given that it is later in the day now, and the activation from the Abilify, that we will start the medication first thing in the morning. She reports she is eating alright and sleeping fine. Mental Status Exam MSE Comments: This is an obese, white female, with limited dress, grooming, and eye contact. No abnormal movements except for psychomotor retardation. Semi- cooperative with exam in mild distress. Speech was limited and decreased rate and volume. Mood described as ready to go home; affect subdued. Thought process, linear. Thought content: patient denied any suicidal or homicidal ideation, there were no delusions reported but clear paranoid and bizarre delusions exist. She denied auditory or visual hallucinations at first but then said that she does hear voices. She at times does appear to be attending to internal stimuli. She is alert and oriented times three. Insight and judgment are impaired. Impulse control is impaired. Intellectual ability appears limited. Vitals/I&O/Wt Last Vital Signs Temp 98.6 F 05/18/20 20:03 Pulse 96 05/18/20 20:03 Resp 13 05/18/20 20:03 BP 118/81 05/18/20 20:03 Pulse Ox 98 05/18/20 20:03 Data NPU : 05/15/20 11:15 05/15/20 11:15 A&P Additional A&P Information (1) Acute psychosis: (2) Bipolar disorder: (3) Methamphetamine dependence: (4) Intellectual disability: This is a 24 year old, white female, with a long history of mood instability, active addiction, and question of intellectual limitations, who presents again with active addiction, aggressive behavior, bizarre and erratic behavior in the community, admitted per her guardian?s request. Continue current medication. Will start Abilify 15 mg by mouth every morning and Abilify Maintena injection 400 mg IM every 30 days. Continue q 15-minute checks for safety. Encourage individual, group, and milieu therapy. Will work with guardian to figure out whether some level of placement or rehab or what type of facility we might jointly agree would be an option for her to have some stabilization and ongoing success. Involuntary Hold Information 96 Hour Hold: 96 Hour Involuntary Admission: Yes 96 Hour Hold Ending Date: 05/21/20 96 Hour Hold Ending Time: 12:01 Attestations NPU Medical Necessity Statement*: Inpatient hospitalization is medically necessary, and the clinically appropriate intervention at this time. We will monitor medications, start them, and adjust as indicated. She will be in the hospital for two midnights. Likely length of stay 3-5 days. Coding Level of Care Code Acute Sales And Training Specialist for Walt Cuellar
[2020-05-18 20:03] VITALS: BP 118/81; PULSE 96; RESP 13; TEMP 37; O2SAT 98
[2020-05-19 06:00] VITALS: RESP 17
[2020-05-19] MEDS: ARIPiprazole 30 mg Tablet 15 MG PO (08:42)
[2020-05-19] MEDS: ARIPiprazole Maintena 400 MG IM (08:55)
--- NOTE | 2020-05-19 08:56 | PC.NURSE ---
JOSE ALBERTO MAINTENA 400 MG GIVEN IM ORDERED INJECTION GIVEN IN LEFT DELTOID. PT EDUCATED ON MED GIVEN & VERBALIZED UNDERSTANDING. WILL CONT TO MONITOR INJECTION SITE FOR ANY REDNESS, SWELLING, OR IRRITATION. LOT [id number] EXP JUN 2021
--- NOTE | 2020-05-19 13:48 | PM.NPN ---
Subjective NPU Subjective: Interval history: Carla presents today reporting that she feels good enough to go and just wants to be discharged. She reports she is doing fine on the Abilify oral and see is having no issues from the Abilify injection. We discussed the fact that she would need to continue the oral medication for another 12 days or so until she gets to a point where the injection will take over. She is very focused on going to her grandmother's house but we explained to her that her grandmother saying she can't come there anymore. Additionally her guardian is working with the treatment team to get her level II placement in place with the [facility] situation we are having more expedited processes but there still will be a little bit of administrative activities has to take place. We explained that we are reaching out to a couple facilities for her to attend. She is repeatedly stating that she would rather just go back to her grandmother's. Mental Status Exam MSE Comments: This is an obese, white female, with limited dress, grooming, and eye contact. No abnormal movements except for psychomotor retardation. Semi-cooperative with exam in mild distress. Speech was limited and decreased rate and volume. Mood described as I am good now; affect less than good. Thought process, linear. Thought content: patient denied any suicidal or homicidal ideation, there were no delusions reported but clear paranoid and bizarre delusions exist but she is appearing less impacted by delusions. She denied auditory or visual hallucinations. She is alert and oriented times three. Insight and judgment are impaired, but improving. Impulse control is impaired, but improving. Intellectual ability appears limited. Vitals/I&O/Wt Last Vital Signs Temp 98.1 F 05/19/20 21:21 Pulse 82 05/19/20 21:21 Resp 17 05/19/20 21:21 BP 101/63 05/19/20 21:21 Pulse Ox 98 05/19/20 21:21 Data NPU : 05/15/20 11:15 05/15/20 11:15 A&P Additional A&P Information (1) Acute psychosis: (2) Bipolar disorder: (3) Methamphetamine dependence: (4) Intellectual disability: This is a 24 year old, white female, with a long history of mood instability, active addiction, and question of intellectual limitations, who presents again with active addiction, aggressive behavior, bizarre and erratic behavior in the community, admitted per her guardian?s request. Continue current medication. Continue q 15-minute checks for safety. Encourage individual, group, and milieu therapy. Will work with guardian to figure out whether some level of placement or rehab or what type of facility we might jointly agree would be an option for her to have some stabilization and ongoing success. Involuntary Hold Information 96 Hour Hold: 96 Hour Involuntary Admission: Yes 96 Hour Hold Ending Date: 05/21/20 96 Hour Hold Ending Time: 12:01 Attestations NPU Medical Necessity Statement*: Inpatient hospitalization is medically necessary, and the clinically appropriate intervention at this time. We will monitor medications and adjust as indicated. Likely length of stay 3-5 days. At this point we will wait for placement in a locked facility. It should not take as long with the adjustments they've made with [facility]. Coding Level of Care Code Acute Offshore Wind Operations Manager for Walt Cuellar
[2020-05-19 14:00] VITALS: BP 101/57; PULSE 74; RESP 18; TEMP 36.7; O2SAT 98
[2020-05-19 21:21] VITALS: BP 101/63; PULSE 82; RESP 17; TEMP 36.7; O2SAT 98
[2020-05-20 06:00] VITALS: BP 127/84; PULSE 94; RESP 20; TEMP 36.8; O2SAT 95
--- NOTE | 2020-05-20 09:29 | PC.NURSE ---
Patient has a rash on her arms. It is red and irritated but she is not complaining of any itching at the present time
[2020-05-20] MEDS: ARIPiprazole 30 mg Tablet 15 MG PO (09:49)
--- NOTE | 2020-05-20 12:03 | P.PN_ITS ---
Subjective NPU Subjective: Interval history: Carla presents today unchanged with no new issues. She continues to clear in regards to her psychosis, and be more amenable to conversations and is more redirectable. As she gets better she continues to focus on whether or not she could go home to her grandmother?s house. At this point, her grandmother has been clear with her, as well, so we discussed the fact that she knows the situation, that she knows that her grandmother feels unable to help her improve, given how things have gone over that last six months. So she is in support of placement and we are in the process of working through the bureaucracy to get that to happen. She is taking her medication without complaint. She denies any side effects to the medication. She is eating and sleeping well. Mental Status Exam MSE Comments: This is an obese, white female, with limited dress, grooming, and eye contact. No abnormal movements except for psychomotor retardation. Semi- cooperative with exam in no acute distress. Speech was normal rate and volume. Mood described as pretty good; affect congruent. Thought process, linear. Thought content: patient denied any suicidal or homicidal ideation, there were no delusions reported but clear paranoid and bizarre delusions exist but she is appearing less impacted by delusions. She denied auditory or visual hallucinations. She is alert and oriented times three. Insight and judgment are impaired, but improving. Impulse control is impaired, but improving. Intellectual ability appears limited. Vitals/I&O/Wt Last Vital Signs Temp 98.2 F 05/20/20 06:00 Pulse 94 05/20/20 06:00 Resp 20 H 05/20/20 06:00 BP 127/84 05/20/20 06:00 Pulse Ox 95 05/20/20 06:00 Data NPU : 05/15/20 11:15 05/15/20 11:15 A&P Additional A&P Information (1) Acute psychosis: (2) Bipolar disorder: (3) Methamphetamine dependence: (4) Intellectual disability: This is a 24 year old, white female, with a long history of mood instability, active addiction, and question of intellectual limitations, who presents again with active addiction, aggressive behavior, bizarre and erratic behavior in the community, admitted per her guardian?s request. Continue current medication. Continue q 15-minute checks for safety. Encourage individual, group, and milieu therapy. Will work with guardian to figure out whether some level of placement or rehab or what type of facility we might jointly agree would be an option for her to have some stabilization and ongoing success. Involuntary Hold Information 96 Hour Hold: 96 Hour Involuntary Admission: Yes 96 Hour Hold Ending Date: 05/21/20 96 Hour Hold Ending Time: 12:01 Attestations NPU Medical Necessity Statement*: Inpatient hospitalization is medically necessary, and the clinically appropriate intervention at this time. We will monitor medications and adjust as indicated. Likely length of stay 3-5 days. At this point we will wait for placement in a locked facility. It should not take as long with the adjustments they've made with Covid. Coding Level of Care Code Acute Order Processing Clerk for Walt Cuellar
[2020-05-20 14:00] VITALS: BP 108/65; PULSE 85; RESP 18; TEMP 36.9; O2SAT 98
[2020-05-20 20:36] VITALS: BP 111/70; PULSE 77; RESP 16; TEMP 36.4; O2SAT 96
--- NOTE | 2020-05-21 04:07 | PC.NURSE ---
pt has rested well so far this night. no behavior issues noted.
[2020-05-21 06:00] VITALS: BP 117/78; PULSE 100; RESP 16; TEMP 36.8; O2SAT 94
[2020-05-21] MEDS: ARIPiprazole 30 mg Tablet 15 MG PO (08:40)
[2020-05-21] MEDS: nicotine 2 mg Gum BUCCAL (10:55)
[2020-05-21 14:00] VITALS: BP 100/66; PULSE 82; RESP 18; TEMP 37.2; O2SAT 97
--- NOTE | 2020-05-21 15:18 | P.PN_ITS ---
Subjective NPU Subjective: Interval history: Carla presents today reporting that she is feeling a bit better. She was focused on wanting to be discharged but was somewhat bullied by the fact that it appears we may have found a solution. She understands that it means she is not going home, but it also means that she does not have to stay in the hospital much longer. The facility is requiring a n egative COVID test which we discussed getting it from her today and she seemed to be adjusting to being back on her medication and denies any specific issues. Mental Status Exam MSE Comments: This is an obese, white female, with limited dress, grooming, and eye contact. No abnormal movements. Cooperative with exam in no acute distress. Speech was normal rate and volume. Mood described as better; affect congruent. Thought process, organized. Thought content: patient denied any suicidal or homicidal ideation, there were no delusions reported and paranoid and bizarre delusions resolving. She denied auditory or visual hallucinations.Attention and concentration are intact and memory appears more reliable, but none were formally tested. She is alert and oriented times three. Insight and judgment are improving. Impulse control is impaired, but improving. Intellectual ability appears limited. Vitals/I&O/Wt Last Vital Signs Temp 98.9 F 05/21/20 14:00 Pulse 82 05/21/20 14:00 Resp 18 05/21/20 14:00 BP 100/66 05/21/20 14:00 Pulse Ox 97 05/21/20 14:00 Data NPU : 05/15/20 11:15 05/15/20 11:15 A&P Additional A&P Information (1) Acute psychosis: (2) Bipolar disorder: (3) Methamphetamine dependence: (4) Intellectual disability: This is a 24 year old, white female, with a long history of mood instability, active addiction, and question of intellectual limitations, who presents again with active addiction, aggressive behavior, bizarre and erratic behavior in the community, admitted per her guardian?s request. Continue current medication. Will get Covid screen. Continue q 15-minute checks for safety. Encourage individual, group, and milieu therapy. Plan for discharge to facility pending Covid negative screen and continued stability. Involuntary Hold Information 96 Hour Hold: 96 Hour Involuntary Admission: Yes 96 Hour Hold Ending Date: 05/21/20 96 Hour Hold Ending Time: 12:01 Attestations NPU Medical Necessity Statement*: Inpatient hospitalization is medically necessary, and the clinically appropriate intervention at this time. We will monitor medications and adjust as indicated. Likely length of stay 3-4 days. Plan for likely discharge Sunday. Coding Level of Care Code Acute Cyber Threat Analyst for Walt Cuellar
--- NOTE | 2020-05-21 17:33 | PC.NURSE ---
Dr Hickman ordered Covid Test to clear this patient for placement projected for early next week
[2020-05-21 20:33] VITALS: BP 121/68; PULSE 94; RESP 17; TEMP 36.5; O2SAT 98
--- NOTE | 2020-05-21 21:27 | PC.NURSE ---
pt offered PRN sleeping and anxiety meds but refused.
[2020-05-21 22:00] VITALS: BP 121/68; PULSE 94; RESP 17; TEMP 36.5; O2SAT 98
[2020-05-22 06:00] VITALS: BP 125/88; PULSE 99; RESP 18; TEMP 36.9; O2SAT 99
[2020-05-22] MEDS: ARIPiprazole 30 mg Tablet 15 MG PO (08:55)
--- NOTE | 2020-05-22 10:36 | PM.NPN ---
Subjective NPU Subjective: Interval history: Carla presents today with continued lessening of her hyperkinetic presentation. She was mostly appropriate and, at this point, is feeling bored with the unit. She did get her COVID-19 swab yesterday, and is awaiting results, with a likely discharge by Sunday. She seemed pretty excited about the opportunity and that it has happened this quickly. She reports she is eating and sleeping fine. Medications: Reviewed: Yes Mental Status Exam MSE Comments: This is an obese, white female, with limited dress, grooming, and eye contact. No abnormal movements. Cooperative with exam in no acute distress. Speech was normal rate and volume. Mood described as pretty good; affect congruent. Thought process, organized. Thought content: patient denied any suicidal or homicidal ideation, there were no delusions reported and no paranoid and bizarre delusions noted. She denied auditory or visual hallucinations.Attention and concentration are intact and memory appears more reliable, but none were formally tested. She is alert and oriented times three. Insight and judgment are improving. Impulse control is impaired, but improving. Intellectual ability appears limited. Vitals/I&O/Wt Last Vital Signs Temp 98.5 F 05/22/20 06:00 Pulse 99 05/22/20 06:00 Resp 18 05/22/20 06:00 BP 125/88 05/22/20 06:00 Pulse Ox 98 05/22/20 06:00 Weight last 48 hrs Weight Data NPU : 05/15/20 11:15 05/15/20 11:15 A&P Additional A&P Information (1) Acute psychosis: (2) Bipolar disorder: (3) Methamphetamine dependence: (4) Intellectual disability: This is a 24 year old, white female, with a long history of mood instability, active addiction, and question of intellectual limitations, who presents again with active addiction, aggressive behavior, bizarre and erratic behavior in the community, admitted per her guardian?s request. Continue current medication. Obtained covid screen. Continue q 15-minute checks for safety. Encourage individual, group, and milieu therapy. Plan for discharge to facility pending Covid negative screen and continued stability. Involuntary Hold Information 96 Hour Hold: 96 Hour Involuntary Admission: Yes 96 Hour Hold Ending Date: 05/21/20 96 Hour Hold Ending Time: 12:01 Attestations NPU Medical Necessity Statement*: Inpatient hospitalization is medically necessary, and the clinically appropriate intervention at this time. We will monitor medications and adjust as indicated. Likely length of stay 3-4 days. Plan for likely discharge Sunday. Coding Level of Care Code Acute Interpersonal Communications Professor for Walt Cuellar
[2020-05-22 14:00] VITALS: BP 128/79; PULSE 18; RESP 18; TEMP 37.1
[2020-05-22 22:00] VITALS: BP 123/86; PULSE 109; RESP 19; TEMP 36.6; O2SAT 96
--- NOTE | 2020-05-23 00:48 | PC.NURSE ---
pt offered PRN meds for sleep and anxiety, but refused.
[2020-05-23 06:00] VITALS: BP 111/67; PULSE 82; RESP 17; TEMP 36.6; O2SAT 98
[2020-05-23] MEDS: ARIPiprazole 30 mg Tablet 15 MG PO (08:57)
--- NOTE | 2020-05-23 09:36 | P.PN_ITS ---
Subjective NPU Subjective: Interval history: Carla presents today reporting that she is excited about having a place to go. She was interested in finding out when she would leave, whether it would be Sunday or Sunday. Advised her that I think the plan, at this point, given I need to have the COVID-19 test back, was to have Sunday be the likely scenario, but we will be open to possibilities depending on the facility and what they need from us, transportation and all those considerations. And she understood. She also asked about whether or not she would be able to have CBD oil, if it was purchased and brought to whatever facility in its original container unopened, and I assured her that I would look into that but figure there would likely not be any limitation to an over the counter remedy. Otherwise, she reports she is sleeping well and doing fine on the medications. Mental Status Exam MSE Comments: This is an obese, white female, with limited dress, grooming, and eye contact. No abnormal movements. Cooperative with exam in no acute distress. Speech was normal rate and volume. Mood described as getting excited; affect congruent. Thought process, organized. Thought content: patient denied any suicidal or homicidal ideation, there were no delusions reported and no paranoid and bizarre delusions noted. She denied auditory or visual hallucinations.Attention and concentration are intact and memory appears more reliable, but none were formally tested. She is alert and oriented times three. Insight and judgment are improving. Impulse control is improving. Intellectual ability appears limited. Vitals/I&O/Wt Last Vital Signs Temp 97.8 F 05/23/20 06:00 Pulse 82 05/23/20 06:00 Resp 17 05/23/20 06:00 BP 111/67 05/23/20 06:00 Pulse Ox 98 05/23/20 06:00 Weight last 48 hrs Weight 108.635 kg Data NPU : 05/15/20 11:15 05/15/20 11:15 A&P Additional A&P Information (1) Acute psychosis: (2) Bipolar disorder: (3) Methamphetamine dependence: (4) Intellectual disability: This is a 24 year old, white female, with a long history of mood instability, active addiction, and question of intellectual limitations, who presents again with active addiction, aggressive behavior, bizarre and erratic behavior in the community, admitted per her guardian?s request. Continue current medication. Continue q 15-minute checks for safety. Encourage individual, group, and milieu therapy. Awaiting Covid 19 results. Plan for discharge to facility pending Covid negative screen and continued stability. Involuntary Hold Information 96 Hour Hold: 96 Hour Involuntary Admission: Yes 96 Hour Hold Ending Date: 05/21/20 96 Hour Hold Ending Time: 12:01 Attestations NPU Medical Necessity Statement*: Inpatient hospitalization is medically necessary, and the clinically appropriate intervention at this time. We will monitor medications and adjust as indicated. Likely length of stay 2-3 days. Plan for likely discharge Sunday. Coding Level of Care Code Acute Institution Librarian for Walt Cuellar
[2020-05-23 14:00] VITALS: BP 110/70; PULSE 62; RESP 18; TEMP 36.8; O2SAT 98
[2020-05-23 14:52] LABS: Coronavirus Lab Test PTC SEE REPORT
[2020-05-23 21:03] VITALS: BP 143/86; PULSE 90; RESP 20; TEMP 36.9; O2SAT 96
[2020-05-24 06:00] VITALS: BP 129/84; PULSE 82; RESP 20; TEMP 36.5; O2SAT 96
[2020-05-24] MEDS: ARIPiprazole 30 mg Tablet 15 MG PO (08:08)
--- NOTE | 2020-05-24 09:37 | PM.NPN ---
Subjective NPU Subjective: Interval history: Sakshi presented today reporting a little disappointment because we finally got our connections, with her new facility, and they are not going to be able to pick her up until Sunday morning, so it will be 24 more hours than she anticipated. But she is keeping a positive attitude and denying any issues. She reports she just looks forward to going. Mental Status Exam MSE Comments: This is an obese, white female, with limited dress, grooming, and eye contact. No abnormal movements. Cooperative with exam in no acute distress. Speech was normal rate and volume. Mood described as getting bummed out; affect congruent. Thought process, organized. Thought content: patient denied any suicidal or homicidal ideation, there were no delusions reported and no paranoid and bizarre delusions noted. She denied auditory or visual hallucinations.Attention and concentration are intact and memory appears more reliable, but none were formally tested. She is alert and oriented times three. Insight and judgment are improving. Impulse control is improving. Intellectual ability appears limited. Vitals/I&O/Wt Last Vital Signs Temp 98.5 F 05/24/20 20:14 Pulse 85 05/24/20 20:14 Resp 19 H 05/24/20 20:14 BP 132/81 05/24/20 20:14 Pulse Ox 95 05/24/20 20:14 Weight last 48 hrs Weight 108.635 kg Data NPU : 05/15/20 11:15 05/15/20 11:15 A&P Additional A&P Information (1) Acute psychosis: (2) Bipolar disorder: (3) Methamphetamine dependence: (4) Intellectual disability: This is a 24 year old, white female, with a long history of mood instability, active addiction, and question of intellectual limitations, who presents again with active addiction, aggressive behavior, bizarre and erratic behavior in the community, admitted per her guardian?s request. Continue current medication. Continue q 15-minute checks for safety. Encourage individual, group, and milieu therapy. Awaiting Covid 19 results. Plan for discharge to facility pending Covid negative screen and continued stability. Involuntary Hold Information 96 Hour Hold: 96 Hour Involuntary Admission: Yes 96 Hour Hold Ending Date: 05/21/20 96 Hour Hold Ending Time: 12:01 Attestations NPU Medical Necessity Statement*: Inpatient hospitalization is medically necessary, and the clinically appropriate intervention at this time. We will monitor medications and adjust as indicated. Likely length of stay 2 days. Plan for likely discharge Sunday. Coding Level of Care Code Acute Transverse Abdominal Muscle Nurse for Walt Cuellar
[2020-05-24 14:00] VITALS: BP 121/80; PULSE 95; RESP 18; TEMP 37.1; O2SAT 99
[2020-05-24 20:14] VITALS: BP 132/81; PULSE 85; RESP 19; TEMP 36.9; O2SAT 95
--- NOTE | 2020-05-25 03:40 | PC.NURSE ---
At , pt was offered meds for sleep and anxiety, but refused.
[2020-05-25 06:00] VITALS: BP 124/87; PULSE 97; RESP 14; TEMP 36.7; O2SAT 97
[2020-05-25] MEDS: nicotine 2 mg Gum BUCCAL (09:09)
[2020-05-25] MEDS: ARIPiprazole 30 mg Tablet 15 MG PO (09:09)
--- NOTE | 2020-05-25 10:35 | P.PN_ITS ---
Subjective NPU Subjective: Interval history: Carla presents today very excited about discharge tomorrow. She was able to talk to the people from the location and they discussed that they would be here before noon and so she wanted to make sure this policy writer typist would have her ready by then because she really wants to go. She was most interested in having a cigarette and talking about getting a new ca rton of cigarettes and leaving the other cigarettes for somebody here. We had a long discussion about smoking cessation and my interest in helping her figure out a way to quit. She reports she is not interested in quitting right now and discussed some different things that smoking feels like it helps. Otherwise, she reports she is eating and sleeping well. She denies any problems. Mental Status Exam MSE Comments: This is an obese, white female, with limited dress, grooming, and eye contact. No abnormal movements. Cooperative with exam in no acute distress. Speech was normal rate and volume. Mood described as getting happy about tomorrow; affect congruent. Thought process, organized. Thought content: patient denied any suicidal or homicidal ideation, there were no delusions reported and no paranoid and bizarre delusions noted. She denied auditory or visual hallucinations.Attention and concentration are intact and memory appears more reliable, but none were formally tested. She is alert and oriented times three. Insight and judgment are improving. Impulse control is improving. Intellectual ability appears limited. Vitals/I&O/Wt Last Vital Signs Temp 98.2 F 05/25/20 20:36 Pulse 93 05/25/20 20:36 Resp 17 05/25/20 20:36 BP 103/60 05/25/20 20:36 Pulse Ox 96 05/25/20 20:36 Data NPU : 05/15/20 11:15 05/15/20 11:15 A&P Additional A&P Information (1) Acute psychosis: (2) Bipolar disorder: (3) Methamphetamine dependence: (4) Intellectual disability: This is a 24 year old, white female, with a long history of mood instability, active addiction, and question of intellectual limitations, who presents much improved, awaiting discharge to level 2 facility. Continue current medication. Continue q 15-minute checks for safety. Encourage individual, group, and milieu therapy. Awaiting Covid 19 results. Plan for discharge to facility tomorrow. Involuntary Hold Information 96 Hour Hold: 96 Hour Involuntary Admission: Yes 96 Hour Hold Ending Date: 05/21/20 96 Hour Hold Ending Time: 12:01 Attestations NPU Medical Necessity Statement*: Inpatient hospitalization is medically necessary, and the clinically appropriate intervention at this time. We will monitor medications and adjust as indicated. Plan for discharge Sunday. Coding Level of Care Code Acute Agricultural Engineering Teacher for Walt Cuellar
[2020-05-25] MEDS: nicotine 21 mg Patch 1 PATCH TRANSDERMA (11:43)
[2020-05-25 14:00] VITALS: BP 117/75; PULSE 116; RESP 20; TEMP 36.9; O2SAT 96
[2020-05-25 20:36] VITALS: BP 103/60; PULSE 93; RESP 17; TEMP 36.8; O2SAT 96
[2020-05-26 06:00] VITALS: BP 126/85; PULSE 83; RESP 18; TEMP 36.7; O2SAT 95
[2020-05-26] MEDS: ARIPiprazole 30 mg Tablet 15 MG PO (08:45)
--- NOTE | 2020-05-26 10:17 | PM.NDC ---
Diagnoses at Discharge Discharge Diagnosis (1) Acute psychosis: Status: Acute (2) Bipolar disorder: Status: Acute (3) Methamphetamine dependence: Status: Acute (4) Intellectual disability: Status: Acute Reason for Visit Reason for Visit: VIOLENT BEHAVIOR Brief History: History of Present Illness Carla Young is a 24 year old female who is known to this entry writer from previous hospitalizations and presents to the emergency room with the [facility] police department. She was last seen in the emergency room on 04-01 where she was in a manic phase. She was brought by the police because they had multiple calls to her grandmother?s residence where she had been staying and was supposedly behaving erratically, yelling, reporting suicidal thoughts, and she returned back and they found her trying to enter the home, beating on the door, and her grandmother endorsed that she had not been taking her medication, and because she had not been taking her medication, she would not let her in. This was one of the stipulations for her to be able to stay there. She had been talking about hearing voices telling her that she needed dope, and then she got to the emergency room and was intermittently resistant to the interview. She was admitted to the neuropsychiatric unit but not on a 96-hour hold because she has a guardian and the guardian agreed with admission. She was admitted to the neuropsychiatric unit for definitive treatment of those issues. She presents today with a very off in the distance look in her eyes, and unable to really communicate specifics of what was going on, only doing what she often does which is ask for a cigarette and asking when she would be discharged. We discussed the risks, benefits, and alternatives of restarting her medication, but in regard to her injection, she could not tell us when it was last administered, but she said she would consider taking it again. She was currently saying though she did not know if she wanted to get on any new medication at this time. She was a very poor historian. I have included an excerpt of her last hospitalization with this entry writer, though she did have a hospitalization that lasted a couple days back in March. She denied any substantive changes to her history, however she continues to struggle with addiction and lack of dependable housing because her grandmother will not allow her to be in the house when she is actively using or if she is refusing her medication, so she ends up wandering the surrounding towns, approaching vehicles, there are messages and stories on Facebook with picture of her approaching cars and people saying that she is asif that she did not get shot because they did not know who she was. She would pop into a window and ask for money and things of that nature. She continues when asked about this, to deny that she is doing anything other than from a distance asking ?can I have a dollar,? but mostly these posts suggests that she is specific that she wants at least twenty dollars. Per last [facility] eval with this entry writer: History of Present Illness Carla Young is a 24 year old female who presented to the unit via the ED reporting that she had gotten a conflict with her mother and to the outcome of that conflict was that she got kicked out and she had nowhere else to go and her mother reported that she (the patient) was feeling suicidal. She reports that she never felt that way and it was just a product of this conflict. She spent the rest of the session in date and trying to get this entry writer to get on a phone with anyone who might agreed to let her come there so she can be discharged today. She was classically Carla and that she was having tantrums jumping up and down having screaming fits when she did not get her way but otherwise she was calm. We reviewed her last evaluation with this entry writer and determined that outside of being kicked out by her mom there have been no changes in her psychosocial circumstances. We discussed the plan to work with the treatment team on possible options for after discharge and to take a look at her medication regimen with a plan to make changes as indicated. However significant concerns exist for this being behavioral and a indication that home is becoming a less viable option for Carla.who presented to the unit via the ED reporting that she had gotten a conflict with her mother and to the outcome of that conflict was that she got kicked out and she had nowhere else to go and her mother reported that she (the patient) was feeling suicidal. She reports that she never felt that way and it was just a product of this conflict. She spent the rest of the session in date and trying to get this entry writer to get on a phone with anyone who might agreed to let her come there so she can be discharged today. She was classically Carla and that she was having tantrums jumping up and down having screaming fits when she did not get her way but otherwise she was calm. We reviewed her last evaluation with this entry writer and determined that outside of being kicked out by her mom there have been no changes in her psychosocial circumstances. We discussed the plan to work with the treatment team on possible options for after discharge and to take a look at her medication regimen with a plan to make changes as indicated. However significant concerns exist for this being behavioral and a indication that home is becoming a less viable option for Carla. Per last eval with this entry writer: History of Present Illness Date of Service: Sep 13, 2019 Chief Complaint: I don't know why I'm here. Can I go home? HPI: Carla presented to the inpatient unit reporting that she did not understand why she has been hospitalized or why she is on a 96-hour hold. She appear to be a poor historian as she can give no ideas of why concerns were raised. She went to the [facility] where she is known and she reports that the problem had something to do with her not wanting to see a therapist. She denies any changes or issues. She endorses compliance with her medication and that she is doing well and has been doing well. History of her recent hospitalizations which are frequent have been included in this document. She denies any change in her history since her last hospitalizations. She denies any problems or any need for any medication interventions and was mostly focused on when would she be discharged. Per ED eval: HISTORY OF PRESENT ILLNESS Chief Complaint: BEHAVIOR CHANGE. This started today. (23 yo female presents to ED on a 96 hour hold. The patient states she was woke to be brought to the ED and she doesn't know why. She said her grandma was mad because the patient walked out of her [facility] appointment and so she had the patient placed on a 96 hour hold since the patient won't go to her appointments nor will she take her medications. When the patient was asked about having hallucinations, depression, SI or HI, the patient kept saying no and would not look at the physician but would only look to the side and repeatedly answer no . The patient said she last used methamphetamine today. After asking her many questions regarding her mental state, she said everything is no and everything is yes. ). The patient is non-compliant with medication. Recent methamphetamines use. Last used drugs today. Has not been sleeping. Has exhibited unusual behavior. Has been paranoid (per family members in the affidavit). She has had hallucinations (per family members though she denies it). The symptoms are described as severe. No injury is present. Similar symptoms previously. Recent medical care: The patient was seen recently by a health care provider. REVIEW OF SYSTEMS All other systems reviewed and are negative. PAST HISTORY See nurses notes. Lung disease. Prior suicide attempt. ( PCP - none). Myocardial infarction. Asthma. Anxiety. Bipolar disorder. Depression. Schizophrenia and psychosis (Intermittent Explosive Disorder, Personality Disorder, Adjustment DIsorder). Previous suicide attempts. Alcoholism. Alcoholism. Substance abuse. ( Lifestyle/Substance Problems). Surgeries: Appendectomy. SOCIAL HISTORY Current every day light tobacco smoker (cigarette)- less than 1/2 a pack per day. Occasional alcohol use; consumes beer and liquor. History of heavy drug use: methamphetamines. Recently used drugs today. ADDITIONAL NOTES The nursing notes have been reviewed. PHYSICAL EXAM Vital Signs: 09/12/2019 22:04 BP: 168/82. HR: 105. RR: 18. O2 saturation: 98%. Temp: 98.1 F. Appearance: Alert. No acute distress. Appearance is normal. Neck: Neck supple. CVS: Tachycardia. Respiratory: Breath sounds normal. Abdomen: Nontender. Skin: Normal skin color. Extremities: Extremities exhibit normal ROM. Psych / Neuro: Oriented X 3. Mood and affect normal. Speech normal. Cognition normal. Thought process and content normal. Insight and judgement not normal. She does not appear to understand hers illness or feel treatment is necessary. Per last eval: History of Present Illness Date of Service: Jun 04, 2019 Chief Complaint: Waste Water Operator stated that she wanted to harm herself. Carla is denying the allegation. HPI: Carla is a 23 year old white female who was referred for suicidal thoughts. She denies suicidal thoughts. The last time Carla had suicidal thoughts was six months ago. She denies a history of suicide attempts. Moods are happy and a little anxious. The patient is able to have fun. Sleep is good. Appetite is good. Energy level is low. Concentration is good. She denies crying spells and guilty feelings. Motivation is good. She denies homicidal and suicidal thoughts. She denies excessive worry, panic attacks, compulsions and obsessions. The patient denies parisa and irritability. Carla denies hallucinations, paranoia, ideas of references, thought broadcasting, thought insertion and thought withdrawal. Hospital Course Hospital Course Carla presented to the emergency room with the [facility] police department, reporting that she had been reporting suicidal thoughts and was endorsing acute psychosis. They had been receiving multiple calls, overnight, from her grandmother?s residence, saying that she had been acting erratically, and saying she was going to commit suicide, and was disturbing the peace and was given a citation. When they returned, she was beating on the door and trying to get in again, and her grandmother ultimately said she is not taking her medications, and since she is not taking her medication, she will not be able to stay there. She told the police she was hearing a little voice telling her that she needed dope. Due to those behaviors, she was brought to the emergency room and evaluated. They evaluated her and deemed her appropriate for a 96-hour hold, however, she has a guardian, and so the guardian was contacted and she was admitted. Once she was admitted, the guardian clarified that he had been trying really hard to allow her to live how she had been living, however, at this point, her safety and the safety of others is so paramount that the discussion about a level 2 placement was embarked upon; we came to the conclusion that was certainly what was in her best interest. She actually acclimated to the individual, group, and milieu therapies fairly rapidly. We restarted her Abilify and gave her the Abilify injection, and she adjusted to that well, and was reporting being positive about placement. During the hospitalization, the patient had routine laboratory studies which were within normal limits, except for a few outliers. Additionally, she had a general medical evaluation which was within normal limits and revealed no new acute processes. Discharge Summary At the time of discharge the patient denied all lethality, was absent psychosis, and mood and anxiety were well managed. The patient endorsed a plan to avoid all drugs of abuse and to follow-up with outpatient services, as recommended. She was evaluated and deemed to be absent credible lethality, and had achieved the maximum benefit from an inpatient hospitalization, and so she was discharged. Involuntary Hold Information 96 Hour Hold: 96 Hour Involuntary Admission: Yes 96 Hour Hold Ending Date: 05/21/20 96 Hour Hold Ending Time: 12:01 Mental Status Exam MSE Comments: This is an obese, white female, with limited dress, grooming, and eye contact. No abnormal movements. Cooperative with exam in no acute distress. Speech was normal rate and volume. Mood described as good; affect congruent. Thought process, organized. Thought content: patient denied any suicidal or homicidal ideation, there were no delusions reported and no paranoid and bizarre delusions noted. She denied auditory or visual hallucinations.Attention and concentration are intact and memory appears more reliable, but none were formally tested. She is alert and oriented times three. Insight and judgment are improving. Impulse control is improving. Intellectual ability appears limited. Discharge Data Vitals: Last Vital Signs Temp 98.0 F 05/26/20 06:00 Pulse 83 05/26/20 06:00 Resp 18 05/26/20 06:00 BP 126/85 05/26/20 06:00 Pulse Ox 95 05/26/20 06:00 Discharge Plan Discharge Patient Disposition: Home Condition: Stable Prescriptions: New aripiprazole 30 mg Tablet 15 mg PO DAILY 7 Days Qty: 7 RF: 0 Abilify Maintena 400 mg suspension,extended rel syring See Rx Instructions .ROUTE .COMPLEX Qty: 1 RF: 1 Vistaril 50 mg capsule 50 mg PO TID PRN (Reason: anxiety) Qty: 90 RF: 1 Discharge Orders: Discharge Order (Routine); Ordered 05/26/20 Ordered By: Ashish Hickman Discharge Diet: Regular Discharge Activity: Resume usual activity Patient Instructions: Aripiprazole (By mouth), Aripiprazole (Injection) Discharge Date/Time: 05/26/20 10:48 Discharge Attestations NPU Time Spent in Discharge Care*: less than 30 min Specific Discharge Activities: Specific discharge activities: educating patient, discussing with case management social worker/social workers/dc planners, documenting/other paperwork and evaluating patient/reviewing data Time Spent in Smoking Cessation: Time spent discussing smoking cessation with patient: 3 to 10 minutes Coding Level of Care Code Acute Staple Fiber Washer for Germaineg Fwd Diagnoses Acute psychosis F23 Bipolar disorder F31.9 Methamphetamine dependence F15.20 Intellectual disability F79
[2020-05-26 10:35] VITALS: BP 126/85; PULSE 83; RESP 18; TEMP 36.7; O2SAT 95
== END 2020-05-26 10:48 | disposition home or self-care (01) | DRG 885 ==
LOC: ER 11:14 → NP 12:44
PROVIDERS: Family Medicine; Admitting Provider Psychiatry & Neurology Psychiatry; Visit Provider Psychiatry & Neurology Psychiatry
DX: F23 Brief psychotic disorder (principal); F15.20 Other stimulant dependence, uncomplicated; F31.9 Bipolar disorder, unspecified; F79 Unspecified intellectual disabilities; F17.210 Nicotine dependence, cigarettes, uncomplicated
CPT/HCPCS: 12345; 80053; 80306; 80307; 81001; 81003; 81025; 85025; 87635; 96372; 99284; 99285; J2060; J3486